=== PATIENT | male | born 1945 | race Caucasian/White ===

== ENCOUNTER 2017-10-11 22:43 | Inpatient (IN) | payer BC, MEDICARE ==
[2017-10-11 22:47] VITALS: BP 168/93; O2SAT 93; O2SAT 94
[2017-10-11 23:08] VITALS: O2SAT 100
[2017-10-11 23:16] LABS: BASOPHIL # 0.1 TH/MM3 (0-0.2); BASOPHIL % 0.8 % (0.0-2.0); EOSINOPHIL # 0.3 TH/MM3 (0-0.4); HEMATOCRIT 34.9 % (39.0-51.0); HEMOGLOBIN 11.5 GM/DL (13.0-17.0); LYMPH % 8.2 % (9.0-44.0); LYMPHOCYTE # 0.7 TH/MM3 (1.0-4.8); MEAN CELL VOLUME 91.9 FL (80.0-100.0); MEAN CORPUSCULAR HEMOGLOBIN 30.2 PG (27.0-34.0); MEAN CORPUSCULAR HGB CONC 32.9 % (32.0-36.0); MEAN PLATELET VOLUME 9.4 FL (7.0-11.0); MONO % 6.6 % (0.0-8.0); MONOCYTE # 0.6 TH/MM3 (0-0.9); NEUT % 81.4 % (16.0-70.0); PLATELET COUNT 186 TH/MM3 (150-450); RED CELL DISTRIBUTION WIDTH 15.6 % (11.6-17.2); WHITE BLOOD COUNT 8.7 TH/MM3 (4.0-11.0)
[2017-10-11] MEDS ORDERED: OMEP20TA93 PO (23:22)
[2017-10-11] MEDS ORDERED: DOXA1TAB35 PO (23:22)
[2017-10-11] MEDS ORDERED: ATOR80TA45 PO (23:22)
[2017-10-11] MEDS ORDERED: CALC0.25 PO (23:22)
[2017-10-11] MEDS ORDERED: ENAL20TA PO (23:22)
[2017-10-11] MEDS ORDERED: AMLO10 PO (23:22)
[2017-10-11] MEDS ORDERED: ALLO100T PO (23:22)
[2017-10-11 23:23] LABS: INTERNATIONAL NORMALIZED RATIO 1.2 RATIO; PROTHROMBIN TIME - PATIENT 11.7 SEC (9.8-11.6)
[2017-10-11] MEDS ORDERED: CARV3.125 PO (23:23)
[2017-10-11] MEDS ORDERED: SODI650T PO (23:23)
[2017-10-11] MEDS ORDERED: NITR0.4S SL (23:23)
[2017-10-11] MEDS ORDERED: VITA10002 PO (23:24)
[2017-10-11] MEDS ORDERED: ASPI-183 PO (23:24)
[2017-10-11 23:27] VITALS: O2SAT 100
[2017-10-11 23:38] LABS: BICARBONATE 19.5 MEQ/L (21.0-32.0); CALCIUM 6.9 MG/DL (8.5-10.1); CREATININE 3.63 MG/DL (0.60-1.30); MAGNESIUM 0.9 MG/DL (1.5-2.5); TROPONIN I 0.11 NG/ML (0.02-0.05)
--- NOTE | 2017-10-11 23:49 | RADRPT ---
EXAM DATE/TIME: 10/11/2017 23:13 [place] COMPARISON: No previous studies available for comparison. INDICATIONS : Short of breath. MEDICAL HISTORY : None. SURGICAL HISTORY : None. ENCOUNTER: Initial ACUITY: 1 day PAIN SCORE: 0/10 LOCATION: Bilateral chest FINDINGS: A single view of the chest demonstrates the lungs to be symmetrically aerated without evidence of mas s, infiltrate or effusion. The cardiomediastinal contours are unremarkable. Osseous structures are intact. CONCLUSION: The lungs are clear. A Edilberto Barragan MD on October 11, 2017 at 23:47 Board Certified Radiologist. This report was verified electronically.
[2017-10-11 23:52] LABS: TOTAL PROTEIN 6.8 GM/DL (6.4-8.2)
[2017-10-11 23:53] LABS: CALCIUM-PROTEIN CORRECTED 7.1 MG/DL (8.5-10.1)
[2017-10-12] VITALS (26 sets, daily range): BP systolic 132–155; BP diastolic 74–86; PULSE 72–94; RESP 16–22; TEMP 97.3–99; O2SAT 91–100
--- NOTE | 2017-10-12 00:10 | PD ---
HPI Chief Complaint: Respiratory Distress Time Seen by Provider: 22:48 Travel History International Travel<30 days: No Contact w/Intl Traveler<30days: No History of Present Illness HPI 72-year-old male was brought into the emergency room by EMS for respiratory distress. As per EMS the initial call to 911 went out as chest pain. Fire had responded first and gave patient 4 baby aspirins. However when EMS arrived patient denied of any chest pain or chest pressure. Only complaint is shortness of breath which was sudden onset at 8 PM. Patient does have history of coronary artery disease with stents. 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 Currently patient once again denies of any chest pain or chest discomfort. He started having lower extremity edema and as per EMS they had heard rales in the bilateral bases which made him start him on BiPAP as well as give him 80 mg of IV Lasix. Patient's initial oxygen saturation was 83% on room air. Patient does not require oxygen at home. The BiPAP oxygen improved to mid 90s. Upon arrival patient said that his breathing felt little better. Patient is not a smoker. No history of COPD. [facility]LY [facility] Past Medical History Narrative Medical List of his past medical, surgical, social and family history is reviewed from the nursing note. Cardiac Catheterization: Yes Diminished Hearing: No Gout: Yes Hypertension: Yes Renal Failure: Yes Triglycerides - High: Yes Social History Alcohol Use: No Tobacco Use: Yes Substance Use: No Allergies-Medications (Allergen,Severity, Reaction): Uncoded Allergies: pcn (Allergy, Severe, Anaphylaxis, 10/11/17) Comments List of his allergies reviewed from the nursing note. Reported Meds & Prescriptions Reported Meds & Active Scripts Active Reported Vitamin B-12 (Cyanocobalamin) 1,000 Mcg Tab 1,000 Mcg PO DAILY Aspirin 325 Mg Tab 325 Mg PO ONCE Sodium Bicarbonate 650 Mg Tab 650 Mg PO DAILY Nitrostat SL (Nitroglycerin) 0.4 Mg Subl 0.4 Mg SL DIRECTED PRN 1 tablet under the tongue as needed for chest pain. Repeat every 5 minutes for a total of 3 DOSES or call 911 if NO relief. Calcitriol 0.25 Mcg Cap 0.25 Mcg PO EVERY OTHER DAY Doxazosin (Doxazosin Mesylate) 2 Mg Tab 2 Mg PO DAILY Norvasc (Amlodipine Besylate) 10 Mg Tab 10 Mg PO DAILY Omeprazole 20 Mg Tab 20 Mg PO DAILY Atorvastatin (Atorvastatin Calcium) 80 Mg Tab 80 Mg PO HS Narrative Medication List of his home medications reviewed from the nursing note. Review of Systems Except as stated in HPI: all other systems reviewed are Neg Respiratory: Positive: Shortness of Breath Musculoskeletal: Positive: Edema Physical Exam Narrative GENERAL: Awake, alert, moderate distress, BiPAP SKIN: Focused skin assessment warm/dry. HEAD: Atraumatic. Normocephalic. EYES: Pupils equal and round. No scleral icterus. No injection or drainage. ENT: No nasal bleeding or discharge. Mucous membranes pink and moist. NECK: Trachea midline. No JVD. CARDIOVASCULAR: Regular rate and rhythm. No murmur appreciated. RESPIRATORY: Tachypnea with accessory muscles used for respiration. Decreased air entry bilaterally with end expiratory wheeze GASTROINTESTINAL: Abdomen soft, non-tender, nondistended. Hepatic and splenic margins not palpable. MUSCULOSKELETAL: No obvious deformities. No clubbing. No cyanosis. Bilateral pedal edema. NEUROLOGICAL: Awake and alert. No obvious cranial nerve deficits. Motor grossly within normal limits. Normal speech. PSYCHIATRIC: Appropriate mood and affect; insight and judgment normal. Data Data Last Documented VS Orders Orders Complete Blood Count With Diff (10/11/17 22:48) Basic Metabolic Panel (Bmp) (10/11/17 22:48) B-Type Natriuretic Peptide (10/11/17 22:48) Prothrombin Time / Inr (Pt) (10/11/17 22:48) Magnesium (Mg) (10/11/17 22:48) Troponin I (10/11/17 22:48) Arterial Blood Gas (Abg) (10/11/17 22:48) Urinalysis - C+S If Indicated (10/11/17 22:48) Iv Access Insert/Monitor (10/11/17 22:48) Electrocardiogram (10/11/17 22:48) Ecg Monitoring (10/11/17 22:48) Oximetry (10/11/17 22:48) Oxygen Administration (10/11/17 22:48) Chest, Single Ap (10/11/17 22:48) Resp Bipap / Cpap Non Invas Vt (10/11/17 ) Protein Corrected Calcium(Pcc) (10/11/17 22:55) Heparin Inj (Heparin Inj) (10/12/17 00:15) Heparin Inj (Heparin Inj) (10/12/17 06:15) Heparin Inj (Heparin Inj) (10/12/17 06:15) Heparin-D5w 25,000 U/250 Ml (Heparin-D5w (10/12/17 00:15) Act Partial Throm Time (Ptt) (10/12/17 00:02) Cbc No Diff, Includes Plts (10/12/17 00:02) Calcium Gluconate Inj (Calcium Gluconate (10/12/17 00:15) Admit Order (Ed Use Only) (10/12/17 00:22) Labs Laboratory Tests Test 10/11/17 22:52 10/11/17 22:55 10/12/17 00:01 Blood Gas Puncture Site LT RADIAL Blood Gas Patient Temperature 98.6 Blood Gas HCO3 19 mmol/L Blood Gas Base Excess -5.9 mmol/L Blood Gas Oxygen Saturation 88 % Arterial Blood pH 7.35 Arterial Blood Partial Pressure CO2 34 mmHg Arterial Blood Partial Pressure O2 64 mmHG Arterial Blood Oxygen Content 13.1 Vol % Arterial Blood Carboxyhemoglobin 1.9 % Arterial Blood Methemoglobin 0.7 % Blood Gas Hemoglobin 10.6 G/DL Oxygen Delivery Device BiPAP Blood Gas Ventilator Setting 14IPAP/7EPAP Blood Gas Inspired Oxygen 50 % White Blood Count 8.7 TH/MM3 Red Blood Count 3.80 MIL/MM3 Hemoglobin 11.5 GM/DL Hematocrit 34.9 % Mean Corpuscular Volume 91.9 FL Mean Corpuscular Hemoglobin 30.2 PG Mean Corpuscular Hemoglobin Concent 32.9 % Red Cell Distribution Width 15.6 % Platelet Count 186 TH/MM3 Mean Platelet Volume 9.4 FL Neutrophils (%) (Auto) 81.4 % Lymphocytes (%) (Auto) 8.2 % Monocytes (%) (Auto) 6.6 % Eosinophils (%) (Auto) 3.0 % Basophils (%) (Auto) 0.8 % Neutrophils # (Auto) 7.0 TH/MM3 Lymphocytes # (Auto) 0.7 TH/MM3 Monocytes # (Auto) 0.6 TH/MM3 Eosinophils # (Auto) 0.3 TH/MM3 Basophils # (Auto) 0.1 TH/MM3 CBC Comment DIFF FINAL Differential Comment Prothrombin Time 11.7 SEC Prothromb Time International Ratio 1.2 RATIO Blood Urea Nitrogen 38 MG/DL Creatinine 3.63 MG/DL Random Glucose 141 MG/DL Total Protein 6.8 GM/DL Calcium Level 6.9 MG/DL Magnesium Level 0.9 MG/DL Sodium Level 145 MEQ/L Potassium Level 4.1 MEQ/L Chloride Level 111 MEQ/L Carbon Dioxide Level 19.5 MEQ/L Anion Gap 15 MEQ/L Estimat Glomerular Filtration Rate 17 ML/MIN Protein Corrected Calcium 7.1 MG/DL Troponin I 0.11 NG/ML B-Type Natriuretic Peptide 752 PG/ML Activated Partial Thromboplast Time 27.5 SEC [facility] Medical Decision Making Medical Screen Exam Complete: Yes Emergency Medical Condition: Yes Medical Record Reviewed: Yes Interpretation(s) Twelve-lead EKG was reviewed by me. Normal sinus rhythm, normal axis, old anterior septal ID, poor R-wave progression, nonspecific ST-T wave changes. Heart rate of 94 bpm. Differential Diagnosis Non-STEMI,/pulmonary edema, congestive heart failure Narrative Course 12:09 AM chest x-ray has been read by the radiologist as negative. Patient was continued on the BiPAP. Blood test result is suggestive of elevated troponin and BNP. I've started the patient on heparin bolus and drip for non-STEMI. Patient will require admission to CICU. Awaiting for the hospitalist to call back. Critical Care Narrative Aggregate critical care time was 45 minutes. Time to perform other separately billable procedures was not included in the critical care time. My time did not include minutes spent treating any other patients simultaneously or on activities that did not directly contribute to the patient's treatment. The services I provided to this patient were to treat and/or prevent clinically significant deterioration that could result in: Respiratory distress, elevated troponin, non-STEMI I provided critical care services requiring my management, as noted below: Chart data review, documentation time, medication orders and management, vital sign assessments/reviewing monitor data, ordering and reviewing lab tests, ordering and interpreting/reviewing x-rays and diagnostic studies, care of the patient and discussion of the patient with the admitting physicians. Procedures EKG Prior to Arrival: Yes Diagnosis Primary Impression: Respiratory distress Additional Impressions: Non-STEMI (non-ST elevated myocardial infarction) Congestive heart disease Qualified Codes: I50.9 - Heart failure, unspecified Chronic renal insufficiency Qualified Codes: N18.9 - Chronic kidney disease, unspecified Hypocalcemia Admitting Information Admitting Physician Requests: Admit Scripts Hydralazine HCl (Hydralazine HCl) 10 Mg Tablet 10 MG PO Q8HR for Blood Pressure Management, #90 TAB Prov: James Jacques DO 10/13/17 Torsemide (Torsemide) 10 Mg Tab 10 MG PO BID for Heart, #60 TAB 0 Refills Prov: James Jacques DO 10/13/17 Carvedilol (Carvedilol) 6.25 Mg Tab 6.25 MG PO BID, #60 TAB 0 Refills Prov: James Jacques DO 10/13/17 Amanda Reynoso MD Oct 12, 2017 00:10
[2017-10-12] MEDS ORDERED: HEPARIN-D5W 25,000 U/250 ML 250 ML IV PRN (00:15)
[2017-10-12] MEDS ORDERED: CALCIUM GLUCONATE 10% 1 GM/10 ML VIAL IV PUSH ONE (00:15)
[2017-10-12] MEDS ORDERED: HEPARIN SODIUM - IV 10,000 UNITS/10 ML VIAL IV ONE (00:15)
[2017-10-12] MEDS ORDERED: NALOXONE HCL 0.4 MG/ML AMP IV PUSH PRN (01:00)
[2017-10-12] MEDS ORDERED: ONDANSETRON HCL 4 MG/2 ML VIAL IVP PRN (01:00)
[2017-10-12] MEDS ORDERED: ASPIRIN 325 MG TAB PO SCH (01:30)
[2017-10-12] MEDS ORDERED: MAGNESIUM SULFATE 1 GM PREMIX 100 ML IV ONE (01:45)
--- NOTE | 2017-10-12 01:51 | HHI.HP ---
HPI Service [facility] Primary Care Physician Non-Staff Admission Diagnosis non-STEMI, respiratory distress, CHF Diagnoses: Travel History International Travel<30 Days: No Contact w/Intl Traveler <30 Da: No History of Present Illness 72-year-old male with a past medical history significant for coronary artery disease status post stenting, hypertension, hyperlipidemia and chronic kidney disease presents to the emergency department by EMS for evaluation of shortness sudden onset shortness of breath. Patient states that he had shortness of breath with sudden onset at 8 PM last night. He states he is having difficulty breathing however this is helped with his BiPAP. He denies any chest pain/ pressure. Per EMS report and emergency room documentation the 911 call was placed for evaluation of chest pain. During our interview, the patient denies ever having had any chest pain at all during the past several days. He endorses a 4-5 day history of bilateral lower extremity edema that is new. He denies any fever/chills. Denies cough. Denies nausea/vomiting/diarrhea. Denies any weakness or fatigue. Review of Systems Except as stated in HPI: all other systems reviewed are Neg Past Family Social History Past Medical History CAD HTN HLD CKD Past Surgical History Cardiac catheterizations with stent placement 10 per patient Left lower extremity bypass Reported Medications Reported Meds & Active Scripts Active Reported Vitamin B-12 (Cyanocobalamin) 1,000 Mcg Tab 1,000 Mcg PO DAILY Aspirin 325 Mg Tab 325 Mg PO ONCE Sodium Bicarbonate 650 Mg Tab 650 Mg PO DAILY Nitrostat SL (Nitroglycerin) 0.4 Mg Subl 0.4 Mg SL DIRECTED PRN 1 tablet under the tongue as needed for chest pain. Repeat every 5 minutes for a total of 3 DOSES or call 911 if NO relief. Coreg (Carvedilol) 3.125 Mg Tab 3.125 Mg PO BID Calcitriol 0.25 Mcg Cap 0.25 Mcg PO EVERY OTHER DAY Allopurinol 100 Mg Tab 200 Mg PO DAILY Doxazosin (Doxazosin Mesylate) 2 Mg Tab 2 Mg PO DAILY Norvasc (Amlodipine Besylate) 10 Mg Tab 10 Mg PO DAILY Omeprazole 20 Mg Tab 20 Mg PO DAILY Atorvastatin (Atorvastatin Calcium) 80 Mg Tab 80 Mg PO HS Enalapril (Enalapril Maleate) 20 Mg Tab 20 Mg PO DAILY Allergies: Uncoded Allergies: pcn (Allergy, Severe, Anaphylaxis, 10/11/17) Family History Both parents with CAD and DM Social History Denies alcohol, tobacco and illicit drugs Physical Exam Vital Signs Vital Signs Date Time Temp Pulse Resp B/P (MAP) Pulse Ox O2 Delivery O2 Flow Rate FiO2 10/12/17 00:44 100 80 10/11/17 23:27 100 BiPAP 10/11/17 23:08 100 50 10/11/17 22:56 94 BiPAP 10/11/17 22:47 94 27 168/93 (118) 94 10/11/17 22:47 93 50 Physical Exam GENERAL: male sitting up in bed SKIN: No rashes, ecchymoses or lesions. Cool and dry. HEAD: Atraumatic. Normocephalic. No temporal or scalp tenderness. EYES: Pupils equal round and reactive. Extraocular motions intact. No scleral icterus. No injection or drainage. ENT: Nose without bleeding, purulent drainage or septal hematoma. Throat without erythema, tonsillar hypertrophy or exudate. Uvula midline. Airway patent. NECK: Trachea midline. No JVD or lymphadenopathy. Supple, nontender, no meningeal signs. CARDIOVASCULAR: Regular rate and rhythm without murmurs, gallops, or rubs. RESPIRATORY: Clear to auscultation. Breath sounds equal bilaterally. No wheezes , rales, or rhonchi. GASTROINTESTINAL: Abdomen soft, non-tender, nondistended. No hepato-splenomegaly , or palpable masses. No guarding. MUSCULOSKELETAL: Bilateral 2+ edema in the feet and ankles NEUROLOGICAL: Awake and alert. Cranial nerves II through XII intact. Motor and sensory grossly within normal limits. Normal speech. Laboratory Laboratory Tests Test 10/11/17 22:52 10/11/17 22:55 10/12/17 00:01 Blood Gas Puncture Site LT RADIAL Blood Gas Patient Temperature 98.6 Blood Gas HCO3 19 Blood Gas Base Excess -5.9 Blood Gas Oxygen Saturation 88 Arterial Blood pH 7.35 Arterial Blood Partial Pressure CO2 34 Arterial Blood Partial Pressure O2 64 Arterial Blood Oxygen Content 13.1 Arterial Blood Carboxyhemoglobin 1.9 Arterial Blood Methemoglobin 0.7 Blood Gas Hemoglobin 10.6 Oxygen Delivery Device BiPAP Blood Gas Ventilator Setting 14IPAP/7EPAP Blood Gas Inspired Oxygen 50 White Blood Count 8.7 Red Blood Count 3.80 Hemoglobin 11.5 Hematocrit 34.9 Mean Corpuscular Volume 91.9 Mean Corpuscular Hemoglobin 30.2 Mean Corpuscular Hemoglobin Concent 32.9 Red Cell Distribution Width 15.6 Platelet Count 186 Mean Platelet Volume 9.4 Neutrophils (%) (Auto) 81.4 Lymphocytes (%) (Auto) 8.2 Monocytes (%) (Auto) 6.6 Eosinophils (%) (Auto) 3.0 Basophils (%) (Auto) 0.8 Neutrophils # (Auto) 7.0 Lymphocytes # (Auto) 0.7 Monocytes # (Auto) 0.6 Eosinophils # (Auto) 0.3 Basophils # (Auto) 0.1 CBC Comment DIFF FINAL Differential Comment Prothrombin Time 11.7 Prothromb Time International Ratio 1.2 Blood Urea Nitrogen 38 Creatinine 3.63 Random Glucose 141 Total Protein 6.8 Calcium Level 6.9 Magnesium Level 0.9 Sodium Level 145 Potassium Level 4.1 Chloride Level 111 Carbon Dioxide Level 19.5 Anion Gap 15 Estimat Glomerular Filtration Rate 17 Protein Corrected Calcium 7.1 Troponin I 0.11 B-Type Natriuretic Peptide 752 Activated Partial Thromboplast Time 27.5 Result Diagram: 10/11/17225410/11/172254 Caprini VTE Risk Assessment Caprini VTE Risk Assessment: Mod/High Risk (score >= 2) Caprini Risk Assessment Model Point Value = 1 Point Value = 2 Point Value = 3 Point Value = 5 Age 41-60 Minor surgery BMI > 25 kg/m2 Swollen legs Varicose veins or History of unexplained or recurrent spontaneous Oral contraceptives or hormone replacement Sepsis (< 1 month) Serious lung disease, including pneumonia (< 1 month) Abnormal pulmonary function Acute myocardial infarction Congestive heart failure (< 1 month) History of inflammatory bowel disease Medical patient at bed rest Age 61-74 Arthroscopic surgery Major open surgery (> 45 min) Laparoscopic surgery (> 45 min) Malignancy Confined to bed (> 72 hours) Immobilizing plaster cast Central venous access Age >= 75 History of VTE Family history of VTE Factor V Leiden Prothrombin [id number] Lupus anticoagulant Anticardiolipin antibodies Elevated serum homocysteine Heparin-induced thrombocytopenia Other congenital or acquired thrombophilia Stroke (< 1 month) Elective arthroplasty Hip, pelvis, or leg fracture Acute spinal cord injury (< 1 month) Prophylaxis Regimen Total Risk Factor Score Risk Level Prophylaxis Regimen 0-1 Low Early ambulation 2 Moderate Order ONE of the following: *Sequential Compression Device (SCD) *Heparin 5000 units SQ BID 3-4 Higher Order ONE of the following medications: *Heparin 5000 units SQ TID *Enoxaparin/Lovenox 40 mg SQ daily (WT < 150 kg, CrCl > 30 mL/min) *Enoxaparin/Lovenox 30 mg SQ daily (WT < 150 kg, CrCl > 10-29 mL/min) *Enoxaparin/Lovenox 30 mg SQ BID (WT < 150 kg, CrCl > 30 mL/min) AND/OR *Sequential Compression Device (SCD) 5 or more Highest Order ONE of the following medications: *Heparin 5000 units SQ TID (Preferred with Epidurals) *Enoxaparin/Lovenox 40 mg SQ daily (WT < 150 kg, CrCl > 30 mL/min) *Enoxaparin/Lovenox 30 mg SQ daily (WT < 150 kg, CrCl > 10-29 mL/min) *Enoxaparin/Lovenox 30 mg SQ BID (WT < 150 kg, CrCl > 30 mL/min) AND *Sequential Compression Device (SCD) Assessment and Plan Assessment and Plan Assessment/plan: 1. Shortness of breath Unclear etiology Chest x-ray negative for acute cardiopulmonary findings, personally reviewed May be component of CHF as patient with mildly elevated BNP and lower extremity edema IV Lasix Continue BiPAP, wean as tolerated 2. Elevated troponin Patient with troponin of 0.11 EKG showed normal sinus rhythm without ST segment elevations or depressions, personally reviewed Patient's elevated troponin is likely secondary to his renal insufficiency Patient denied having any chest pain however this was reported to the emergency department physician Patient was started on a heparin drip in the emergency department, we will continue this until ACS rule out as complete Patient's senior writer, Dr. Meredith, consulted, appreciate recommendations 3. Chronic kidney disease Creatinine 3.63, baseline unknown Patient has known history of chronic kidney disease Monitor renal function 4. Hypertension/hyperlipidemia/CAD Continue home medications 5. Hypocalcemia, hypomagnesemia Status post supplementation Repeat in a.m. FEN NPO Electrolytes: as above Heparin ggt Physician Certification 2 Midnight Certification Type: Admission for Inpatient Services Order for Inpatient Services The services are ordered in accordance with Medicare regulations or non- Medicare payer requirements, as applicable. In the case of services not specified as inpatient-only, they are appropriately provided as inpatient services in accordance with the 2-midnight benchmark. Estimated LOS (days): 2 2 days is the estimated time the patient will need to remain in the hospital, assuming treatment plan goals are met and no additional complications. Post-Hospital Plan: Not yet determined Agnes Kimble MD Oct 12, 2017 01:51
[2017-10-12 02:43] LABS: HEMATOCRIT 31.4 % (39.0-51.0); HEMOGLOBIN 10.3 GM/DL (13.0-17.0); MEAN CELL VOLUME 92.2 FL (80.0-100.0); MEAN CORPUSCULAR HEMOGLOBIN 30.2 PG (27.0-34.0); MEAN CORPUSCULAR HGB CONC 32.7 % (32.0-36.0); MEAN PLATELET VOLUME 9.5 FL (7.0-11.0); PLATELET COUNT 168 TH/MM3 (150-450); RED CELL DISTRIBUTION WIDTH 15.3 % (11.6-17.2); WHITE BLOOD COUNT 6.4 TH/MM3 (4.0-11.0)
[2017-10-12 02:48] LABS: BILIRUBIN, URINE NEG (NEG); BLOOD, URINE NEG (NEG); GLUCOSE,URINE NEG (NEG); HYALINE CAST, URINE 3 /lpf (RARE); KETONE, URINE NEG (NEG); MUCUS URINE FEW /lpf (OCC); NITRITE,URINE NEG (NEG); PH, URINE 5.5 (5.0-8.5); URINE COLOR LIGHT-YELLOW (YELLW/STRAW); URINE LEUKOCYTE ESTERASE NEG (NEG)
[2017-10-12] MEDS ORDERED: HEPARIN SODIUM - IV 10,000 UNITS/10 ML VIAL IV PRN ×2 (06:15)
--- NOTE | 2017-10-12 08:52 | MB ---
cc: Cinthya Meredith MD DATE OF CONSULT: 10/12/2017 REASON FOR CONSULTATION: CHF and elevated troponin. HISTORY OF PRESENT ILLNESS: Mr. Zaragoza is a 72-year-old man who does have a history of CAD with prior stent, hypertension, hyperlipidemia, and chronic kidney disease, who follows with myself and Dr. Gilbert. He presented to the emergency room with progressive shortness of breath. He notes he had shortness of breath while sitting on the side of the bed. He has had several days of progressive lower extremity edema. He reports he has been following his medications and diet restrictions. PAST MEDICAL HISTORY: Significant for hypertension, hyperlipidemia, CAD, CKD and PVD. OUTPATIENT MEDICATIONS: Include: aspirin, Coreg, calcitriol, Allopurinol, doxazosin, Norvasc, omeprazole, atorvastatin, enalapril. ALLERGIES: PENICILLIN. FAMILY HISTORY: Positive for CAD. SOCIAL HISTORY: The patient does not smoke. PHYSICAL EXAM: VITAL SIGNS: 98.3, 86, 19, 155/80 GENERAL: He is a well-appearing man, who is in no apparent distress. NECK: Free from JVD. LUNGS: Bilateral basilar rales. CARDIOVASCULAR EXAMINATION: He has a normal S1 and S2. No rubs or gallops were appreciated. ABDOMEN: Soft. EXTREMITIES: Mild edema. LABORATORY VALUES: Significant for a hemoglobin of 10. His creatinine is 3.6 and troponin is 0.11 with a BNP of 752. Chest x-ray, clear. ECG shows normal sinus rhythm with poor R-wave progression and nonspecific ST-T wave changes. IMPRESSIONS: Congestive heart failure - The patient has renal insufficiency and apparent fluid overload. I do agree with the IV Lasix. Fluid and sodium restrictions will be added. He is already on a beta bhupendra and DAYSI inhibitor. Chronic kidney disease - The patient has had significant progression of his renal insufficiency. At this point, given his renal insufficiency, I would hold his DAYSI inhibitor, consideration should be given to a nephrology consult per the primary team. Elevated troponin - The patient is on heparin and a beta bhupendra. He denies any chest pain to me. His elevated creatinine of 3.6 is rather prohibitive for catheterization as he is not yet on dialysis. Thus, at this point, I would conservatively manage him. I do feel that the troponin of 0.11 is consistent with CHF at this point, especially in light of his BNP of 752, also suggesting CHF. Further enzymes are pending. MD CHINA Quintana/AIME , 08:17 AM , 08:50 AM
[2017-10-12] MEDS ORDERED: ENALAPRIL MALEATE 10 MG TAB PO SCH (09:00)
[2017-10-12] MEDS ORDERED: CALCITRIOL 0.25 MCG CAP PO SCH (09:00)
[2017-10-12] MEDS ORDERED: SODIUM BICARBONATE 650 MG TAB PO SCH (09:00)
[2017-10-12] MEDS ORDERED: FUROSEMIDE 40 MG/4 ML VIAL IV PUSH SCH (09:00)
[2017-10-12] MEDS: ALLOPURINOL 100 MG TAB PO SCH (09:08)
[2017-10-12] MEDS: PANTOPRAZOLE SOD 20 MG DELAYED RELEASE TAB PO SCH (09:08)
[2017-10-12] MEDS: CARVEDILOL 3.125 MG TAB PO SCH ×2 (09:08→21:41)
[2017-10-12] MEDS: CYANOCOBALAMIN 1,000 MCG TAB PO SCH (09:08)
[2017-10-12 09:11] LABS: TROPONIN I 0.16 NG/ML (0.02-0.05)
[2017-10-12] MEDS: DOXAZOSIN MESYLATE 2 MG TAB PO SCH (09:37)
[2017-10-12] MEDS: hydrALAZINE HCL 10 MG TAB PO SCH ×2 (11:25→17:51)
--- NOTE | 2017-10-12 11:26 | EKG ---
Date Performed: 10/11/2017 Time Performed: 22:52:17 PTAGE: 72 years EKG: Sinus rhythm LOW QRS VOLTAGE IN EXTREMITY LEADS POSSIBLE ANTERIOR MYOCARDIAL INFARCTION ABNORMAL ECG NO PREVIOUS TRACING DOCTOR: Cinthya Meredith Interpretating Date/Time 10/12/2017 11:24:19
--- NOTE | 2017-10-12 14:59 | HHI.PR ---
Addendum to Inpatient Note Additional Information Mr. Zaragoza is a 72-year-old male with a history of chronic kidney disease who was admitted due to dyspnea. He also had mildly elevated troponins. Cardiology was consulted for possible CHF exacerbation. Patient received IV Lasix. He reports significant improvement of his symptoms. He denies any chest pain at home or here. I discussed with nephrology. Patient's baseline creatinine appears to be below 3 but during this admission his creatinine is 3.6. His dyspnea could be related to fluid overload from acute kidney injury on chronic kidney disease. Nephrology will evaluate him today. Probable discharge tomorrow morning. James Jacques DO Oct 12, 2017 2:59 pm
[2017-10-12 16:14] LABS: TROPONIN I 0.12 NG/ML (0.02-0.05)
--- NOTE | 2017-10-12 16:41 | PD.CONS ---
HPI Service Nephrology Consult Requested By Reason for Consult Acute on CKD Primary Care Physician Non-Staff History of Present Illness This is a very pleasant 72 y/o male patient with underlying CKD 4 who came to the ER for shortness of breath and swelling of his lower extremities. He has been short of breath for a few days. Creatinine on arrival was 3.6, CO2 19. BNP and troponin were elevated. He was evaluated by cardiology and started on Heparin gtt. He is making urine. We were consulted to assist. Other PMH of Barretts esophagus, gout, anemia, CAD (hx of stents), and HTN. He is not on diuretics at home, was on lasix 40 IV BID here. He is awake, not in distress, and is a full code. (Mesha Rizvi) Review of Systems Constitutional: COMPLAINS OF: Fatigue, Weight gain, DENIES: Change in appetite Respiratory: COMPLAINS OF: Shortness of breath Cardiovascular: COMPLAINS OF: Lower Extremity Edema, DENIES: Chest pain Gastrointestinal: DENIES: Abdominal pain Musculoskeletal: DENIES: Joint pain, Joint Swelling Hematologic/lymphatic: DENIES: Bruising Neurologic: DENIES: Abnormal gait (Mesha Rizvi) Past Family Social History Allergies: Uncoded Allergies: pcn (Allergy, Severe, Anaphylaxis, 10/11/17) Past Medical History CKD 4, Baseline 2.68/GFR 23 Biopsy proven FSGS with Proteinuria CAD with stents HTN Hyperlipidemia Williamson's Esophagus GOUT Past Surgical History Cardiac catheterizations with stent placement 10 per patient Left lower extremity bypass Reported Medications Vitamin B-12 (Cyanocobalamin) 1,000 Mcg Tab 1,000 Mcg PO DAILY Aspirin 325 Mg Tab 325 Mg PO ONCE Sodium Bicarbonate 650 Mg Tab 650 Mg PO DAILY Nitrostat SL (Nitroglycerin) 0.4 Mg Subl 0.4 Mg SL DIRECTED PRN 1 tablet under the tongue as needed for chest pain. Repeat every 5 minutes for a total of 3 DOSES or call 911 if NO relief. Coreg (Carvedilol) 3.125 Mg Tab 3.125 Mg PO BID Calcitriol 0.25 Mcg Cap 0.25 Mcg PO EVERY OTHER DAY Allopurinol 100 Mg Tab 200 Mg PO DAILY Doxazosin (Doxazosin Mesylate) 2 Mg Tab 2 Mg PO DAILY Norvasc (Amlodipine Besylate) 10 Mg Tab 10 Mg PO DAILY Omeprazole 20 Mg Tab 20 Mg PO DAILY Atorvastatin (Atorvastatin Calcium) 80 Mg Tab 80 Mg PO HS Enalapril (Enalapril Maleate) 20 Mg Tab 20 Mg PO DAILY Active Ordered Medications Current Medications Medications (Trade) Dose Ordered Sig/Lamar Route Start Time Stop Time Status Last Admin (Heparin Inj) 5,000 units UNSCH PRN IV 10/12/17 06:15 (Heparin Inj) 2,500 units UNSCH PRN IV 10/12/17 06:15 10/12/17 01:18 Heparin Sodium/ Dextrose 250 ml @ 9 mls/hr TITRATE PRN IV 10/12/17 00:15 10/12/17 02:27 (Zofran Inj) 4 mg Q6H PRN IVP 10/12/17 01:00 (Narcan Inj) 0.4 mg UNSCH PRN IV PUSH 10/12/17 01:00 (Zyloprim) 200 mg DAILY PO 10/12/17 09:00 10/12/17 09:08 (Norvasc) 10 mg DAILY PO 10/12/17 09:00 10/12/17 09:08 (Lipitor) 80 mg HS PO 10/12/17 21:00 (Coreg) 3.125 mg BID PO 10/12/17 09:00 10/12/17 09:08 (Cardura) 2 mg DAILY PO 10/12/17 09:00 10/12/17 09:37 (Sodium Bicarbonate) 650 mg DAILY PO 10/12/17 09:00 10/12/17 09:36 (Protonix) 20 mg DAILY PO 10/12/17 09:00 10/12/17 09:08 (Rocaltrol) 0.25 mcg EVERY OTHER DAY PO 10/12/17 09:00 10/12/17 09:36 (Vitamin B12) 1,000 mcg DAILY PO 10/12/17 09:00 10/12/17 09:08 (Lasix Inj) 40 mg BID@18 IV PUSH 10/12/17 09:00 10/12/17 09:08 (Apresoline) 10 mg Q6HR PO 10/12/17 12:00 10/12/17 11:25 Family History Non contributory Social History recently passed, within the past month Lives alone now He is active Full Code 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) Physical Exam Vital Signs Vital Signs Date Time Temp Pulse Resp B/P (MAP) Pulse Ox O2 Delivery O2 Flow Rate FiO2 10/12/17 16:00 82 10/12/17 15:31 98.3 81 19 132/74 (93) 92 10/12/17 15:00 77 10/12/17 14:02 81 10/12/17 13:00 80 10/12/17 12:00 82 10/12/17 11:13 97.3 80 19 145/79 (101) 93 10/12/17 11:00 87 10/12/17 10:00 94 10/12/17 09:00 86 10/12/17 08:10 91 Nasal Cannula 3.00 10/12/17 08:00 82 10/12/17 07:44 98.3 86 19 155/80 (105) 93 10/12/17 07:00 85 10/12/17 04:14 98 Venturi Mask 6.00 40 10/12/17 04:00 99 6.00 50 10/12/17 04:00 98.2 91 22 148/86 (106) 98 10/12/17 03:52 10/12/17 02:44 97 60 10/12/17 01:49 78 16 142/77 (98) 92 BiPAP 10/12/17 00:44 100 80 10/11/17 23:27 100 BiPAP 10/11/17 23:08 100 100 10/11/17 22:56 94 BiPAP 10/11/17 22:47 94 27 168/93 (118) 94 10/11/17 22:47 93 50 Physical Exam GENERAL: male resting in bed. SKIN: No rashes, ecchymoses or lesions. Cool and dry. HEAD: Atraumatic. Normocephalic. No temporal or scalp tenderness. EYES: Pupils equal round and reactive. Extraocular motions intact. No scleral icterus. No injection or drainage. ENT: Nose without bleeding, purulent drainage or septal hematoma. Throat without erythema, tonsillar hypertrophy or exudate. Uvula midline. Airway patent. NECK: Trachea midline. No JVD or lymphadenopathy. Supple, nontender, no meningeal signs. CARDIOVASCULAR: Regular rate and rhythm without murmurs, gallops, or rubs. RESPIRATORY: Clear to auscultation. Breath sounds equal bilaterally. No wheezes , rales, or rhonchi. Speaks full sentences. GASTROINTESTINAL: Abdomen soft, non-tender, nondistended. No hepato-splenomegaly , or palpable masses. No guarding. MUSCULOSKELETAL: Trace edema in the feet and ankles NEUROLOGICAL: Awake and alert. CN II through XII intact. Motor and sensory grossly within normal limits. Normal speech. Laboratory Laboratory Tests Test 10/11/17 22:52 10/11/17 22:55 10/12/17 00:01 10/12/17 02:30 Blood Gas Puncture Site LT RADIAL Blood Gas Patient Temperature 98.6 Blood Gas HCO3 19 Blood Gas Base Excess -5.9 Blood Gas Oxygen Saturation 88 Arterial Blood pH 7.35 Arterial Blood Partial Pressure CO2 34 Arterial Blood Partial Pressure O2 64 Arterial Blood Oxygen Content 13.1 Arterial Blood Carboxyhemoglobin 1.9 Arterial Blood Methemoglobin 0.7 Blood Gas Hemoglobin 10.6 Oxygen Delivery Device BiPAP Blood Gas Ventilator Setting 14IPAP/7EPAP Blood Gas Inspired Oxygen 50 White Blood Count 8.7 6.4 Red Blood Count 3.80 3.40 Hemoglobin 11.5 10.3 Hematocrit 34.9 31.4 Mean Corpuscular Volume 91.9 92.2 Mean Corpuscular Hemoglobin 30.2 30.2 Mean Corpuscular Hemoglobin Concent 32.9 32.7 Red Cell Distribution Width 15.6 15.3 Platelet Count 186 168 Mean Platelet Volume 9.4 9.5 Neutrophils (%) (Auto) 81.4 Lymphocytes (%) (Auto) 8.2 Monocytes (%) (Auto) 6.6 Eosinophils (%) (Auto) 3.0 Basophils (%) (Auto) 0.8 Neutrophils # (Auto) 7.0 Lymphocytes # (Auto) 0.7 Monocytes # (Auto) 0.6 Eosinophils # (Auto) 0.3 Basophils # (Auto) 0.1 CBC Comment DIFF FINAL Differential Comment Prothrombin Time 11.7 Prothromb Time International Ratio 1.2 Blood Urea Nitrogen 38 Creatinine 3.63 Random Glucose 141 Total Protein 6.8 Calcium Level 6.9 Magnesium Level 0.9 Sodium Level 145 Potassium Level 4.1 Chloride Level 111 Carbon Dioxide Level 19.5 Anion Gap 15 Estimat Glomerular Filtration Rate 17 Protein Corrected Calcium 7.1 Troponin I 0.11 B-Type Natriuretic Peptide 752 Activated Partial Thromboplast Time 27.5 Urine Color LIGHT-YELLOW Urine Turbidity CLEAR Urine pH 5.5 Urine Specific Ward 1.009 Urine Protein 100 Urine Glucose (UA) NEG Urine Ketones NEG Urine Occult Blood NEG Urine Nitrite NEG Urine Bilirubin NEG Urine Urobilinogen LESS THAN 2.0 Urine Leukocyte Esterase NEG Urine RBC 1 Urine WBC LESS THAN 1 Urine Hyaline Casts 3 Urine Mucus FEW Microscopic Urinalysis Comment CULT NOT INDICATED Test 10/12/17 05:16 10/12/17 14:44 Total Creatine Kinase 174 156 Troponin I 0.16 0.12 Activated Partial Thromboplast Time 41.1 (Mesha Rizvi) Result Diagram: 10/12/17 0230 10/11/17 2255 Imaging Last 72 hours Impressions Chest X-Ray 10/11/17 2248 Signed Impressions: Service Date/Time: Wednesday, October 11, 2017 23:13 - CONCLUSION: The lungs are clear. A Edilberto Barragan MD (Mesha Rizvi) Assessment and Plan Problem List: (1) Acute renal failure superimposed on stage 4 chronic kidney disease ICD Codes: N17.9 - Acute kidney failure, unspecified; N18.4 - Chronic kidney disease, stage 4 (severe) Plan: He has biopsy proven FSGS, his creatinine was 2.68, GFR 23 from May 2017 BHAVESH most likely due to increased renal vein pressure from CHF exacerbation, fluid retention. He is non oliguric,follow output Mild acidosis noted, increase sodium bicarbonate to BID dosage for discharge Obtain renal US Change lasix to 40 mg PO BID Avoid nephrotoxic agents. Cannot stop Protonix given hx of Williamson's esophagus. Renal panel in AM He should resume DAYSI but would advise to wait several days prior to starting. (2) Non-STEMI (non-ST elevated myocardial infarction) ICD Codes: I21.4 - Non-ST elevation (NSTEMI) myocardial infarction Status: Acute Plan: He is on heparin gtt currently Cardiology has evaluated, recommend conservative management given his renal impairment (Mesha Rizvi) Assessment and Plan patient was seen and examined. Acute on Chronic kidney disease, patient with fluid overload. Unclear if fluid overload is due to renal dysfunction, but certainly possible. Echo was obtained. Does have history of CAD, s/p stents. Plan: Change Lasix to PO. Avoid nephrotoxins. Monitor urine output and renal function. Dialysis if necessary. (Rupert Gilbert MD) Mesha Rizvi Oct 12, 2017 16:41 Rupert Gilbert MD Oct 12, 2017 20:11
[2017-10-12] MEDS: FUROSEMIDE 40 MG TAB PO SCH (17:51)
--- NOTE | 2017-10-12 19:05 | RADRPT ---
EXAM DATE/TIME: 10/12/2017 17:30 [facility] COMPARISON: No previous studies available for comparison. INDICATIONS : Elevated labs. MEDICAL HISTORY : Hypertension. Hyperlipidemia. Dyspnea. Renal Failure. Gout. SURGICAL HISTORY : Cardiac catheterization. ENCOUNTER: Initial ACUITY: 1 day PAIN SCORE: 0/10 LOCATION: Bilateral flank MEASUREMENTS: RIGHT KIDNEY: 9.5 x 4.6 x 4.6 cm LEFT KIDNEY: 11.6 x 4.2 x 5.3 cm FINDINGS: Right kidney is slightly echogenic. No hydronephrosis. Left kidney has moderate hydronephrosis and a 1.3 cm cyst in the lower pole. Bladder is distended. CONCLUSION: 1. Moderate hydronephrosis left kidney of unknown etiology. Mild medical renal disease and the right kidney. Carlos Napoles MD on October 12, 2017 at 19:02 Board Certified Radiologist. This report was verified electronically.
--- NOTE | 2017-10-12 19:42 | ECHRPT ---
Indication: CHF CONCLUSIONS The left ventricular systolic function is moderately to severely reduced with an estimated ejection fraction in the range of 30-35%. Normal left ventricular size. Wall thickness is normal. No regional wall motion abnormalities are present. [id number] mitral valve regurgitation. Aortic valve sclerosis is present. Trace aortic valve regurgitation. There is trace tricuspid valve regurgitation. The estimated pulmonary arterial pressure is 47 mmHg. Mild pulmonary valve regurgitation. BP: 155 / 80 HR: 86 Rhythm: MEASUREMENTS (Male / Female) Normal Values Technical Quality: 2D ECHO LV Diastolic Diameter PLAX 6.3 cm 4.2 - 5.9 / 3.9 - 5.3 cm LV Systolic Diameter PLAX 5.5 cm IVS Diastolic Thickness 0.9 cm 0.6 - 1.0 / 0.6 - 0.9 cm LVPW Diastolic Thickness 0.9 cm 0.6 - 1.0 / 0.6 - 0.9 cm LV Relative Wall Thickness 0.3 RV Internal Dim ED PLAX 2.5 cm LVOT Diameter 2.1 cm LA Systolic Diameter LX 3.8 cm 3.0 - 4.0 / 2.7 - 3.8 cm LV Ejection Fraction MOD 4C 37.1 % LV Cardiac Index MOD 4C 3520.1 cm/minm LV Ejection Fraction 4C AL 36.4 % LV Cardiac Index 4C AL 3537.8 cm/minm M-MODE Aortic Root Diameter MM 2.7 cm LA Systolic Diameter MM 3.8 cm LA Ao Ratio MM 1.4 AV Cusp Separation MM 2.1 cm DOPPLER AV Peak Velocity 116.0 cm/s AV Peak Gradient 5.4 mmHg LVOT Peak Velocity 79.0 cm/s LVOT Peak Gradient 2.5 mmHg AV Area Cont Eq pk 2.4 cm MV Area PHT 6.1 cm Mitral E Point Velocity 113.0 cm/s Mitral A Point Velocity 110.3 cm/s Mitral E to A Ratio 1.0 TR Peak Velocity 303.0 cm/s TR Peak Gradient 36.7 mmHg Right Atrial Pressure 10.0 mmHg Pulmonary Artery Systolic Pressu 46.7 mmHg Right Ventricular Systolic Press 46.7 mmHg PV Peak Velocity 59.7 cm/s PV Peak Gradient 1.4 mmHg FINDINGS LEFT VENTRICLE The left ventricular systolic function is moderately to severely reduced with an estimated ejection fraction in the range of 30-35%. Normal left ventricular size. Wall thickness is normal. No regional wall motion abnormalities are present. RIGHT VENTRICLE Normal right ventricular size and systolic function. LEFT ATRIUM The left atrial size is normal. RIGHT ATRIUM The right atrial size is normal. ATRIAL SEPTUM Normal atrial septal thickness without atrial level shunting by limited color doppler interrogation. AORTA The aortic root and proximal ascending aorta are normal in size on limited imaging. MITRAL VALVE Structurally normal mitral valve. [id number] mitral valve regurgitation. AORTIC VALVE Trileaflet aortic valve. Aortic valve sclerosis is present. Trace aortic valve regurgitation. TRICUSPID VALVE Structurally normal tricuspid valve. There is trace tricuspid valve regurgitation. The estimated pulmonary arterial pressure is 46.7 mmHg. PULMONARY VALVE Mild pulmonary valve regurgitation. VESSELS There is less than 50% respiratory change in dimension of the inferior vena cava (abnormal). PERICARDIUM No pericardial effusion. Jeaneth Brown MD, FACC (Electronically Signed) Final Date:12 October 2017 19:41
[2017-10-12] MEDS ORDERED: ATORVASTATIN 80 MG TAB PO SCH (21:00)
[2017-10-12] MEDS: SODIUM BICARBONATE 650 MG TAB PO SCH (21:42)
[2017-10-13] VITALS (16 sets, daily range): BP systolic 142–158; BP diastolic 81–86; PULSE 73–99; RESP 16–19; TEMP 97.6–98.3; O2SAT 92–94
[2017-10-13] MEDS: hydrALAZINE HCL 10 MG TAB PO SCH ×3 (00:39→11:51)
[2017-10-13 04:04] LABS: AUTOMATED NEUTROPHIL # 4.2 TH/MM3 (1.8-7.7); BASOPHIL # 0.1 TH/MM3 (0-0.2); BASOPHIL % 0.9 % (0.0-2.0); EOSINOPHIL # 0.3 TH/MM3 (0-0.4); EOSINOPHIL % 3.9 % (0.0-4.0); HEMOGLOBIN 9.6 GM/DL (13.0-17.0); LYMPH % 20.7 % (9.0-44.0); LYMPHOCYTE # 1.4 TH/MM3 (1.0-4.8); MEAN CELL VOLUME 92.1 FL (80.0-100.0); MEAN CORPUSCULAR HEMOGLOBIN 30.6 PG (27.0-34.0); MEAN CORPUSCULAR HGB CONC 33.2 % (32.0-36.0); MEAN PLATELET VOLUME 9.5 FL (7.0-11.0); MONO % 9.6 % (0.0-8.0); MONOCYTE # 0.6 TH/MM3 (0-0.9); NEUT % 64.9 % (16.0-70.0); PLATELET COUNT 149 TH/MM3 (150-450); RED BLOOD COUNT 3.15 MIL/MM3 (4.50-5.90); WHITE BLOOD COUNT 6.5 TH/MM3 (4.0-11.0)
[2017-10-13 04:40] LABS: CALCIUM 6.9 MG/DL (8.5-10.1); CREATININE 3.78 MG/DL (0.60-1.30)
[2017-10-13 05:08] LABS: CALCIUM-PROTEIN CORRECTED 7.7 MG/DL (8.5-10.1); TOTAL PROTEIN 5.6 GM/DL (6.4-8.2)
[2017-10-13] MEDS: FUROSEMIDE 40 MG TAB PO SCH (09:03)
[2017-10-13] MEDS: CARVEDILOL 3.125 MG TAB PO SCH (09:03)
[2017-10-13] MEDS: SODIUM BICARBONATE 650 MG TAB PO SCH (09:03)
[2017-10-13] MEDS: PANTOPRAZOLE SOD 20 MG DELAYED RELEASE TAB PO SCH (09:03)
[2017-10-13] MEDS: CYANOCOBALAMIN 1,000 MCG TAB PO SCH (09:03)
[2017-10-13] MEDS: ALLOPURINOL 100 MG TAB PO SCH (09:03)
[2017-10-13] MEDS: DOXAZOSIN MESYLATE 2 MG TAB PO SCH (09:04)
--- NOTE | 2017-10-13 11:29 | HHI.NPPN ---
Subjective Renal Failure: Chronic, Acute, Stage IV Interval History His renal function is worse. He wants to be discharged. (Mesha Rizvi) Objective Data Data Vital Signs Date Time Temp Pulse Resp B/P (MAP) Pulse Ox O2 Delivery O2 Flow Rate FiO2 10/13/17 11:02 97.6 93 16 158/84 (108) 92 10/13/17 08:10 92 21 10/13/17 07:40 97.9 86 19 147/86 (106) 92 10/13/17 07:40 92 Room Air 10/13/17 06:00 81 10/13/17 05:00 74 10/13/17 04:00 76 10/13/17 03:00 73 10/13/17 03:00 98.3 83 18 142/81 (101) 94 10/13/17 02:00 75 10/13/17 01:00 78 10/13/17 00:00 94 Venturi Mask 6.00 50 10/13/17 00:00 79 10/12/17 23:50 94 Venturi Mask 50 10/12/17 23:00 91 10/12/17 23:00 98.7 72 16 140/78 (98) 94 10/12/17 22:45 92 Nasal Cannula 3.50 10/12/17 22:00 90 10/12/17 21:00 88 10/12/17 20:00 99.0 89 16 140/79 (99) 94 10/12/17 20:00 83 10/12/17 19:00 94 Nasal Cannula 2.00 10/12/17 19:00 83 10/12/17 17:50 139/76 (97) 10/12/17 17:34 92 10/12/17 16:00 82 10/12/17 15:31 98.3 81 19 132/74 (93) 92 10/12/17 15:00 77 10/12/17 14:02 81 10/12/17 13:00 80 10/12/17 12:00 82 (Mesha Rizvi) -: 10/13/17 0305 10/13/17 0305 Imaging Last 72 hours Impressions Renal Ultrasound 10/12/17 0000 Signed Impressions: Service Date/Time: Thursday, October 12, 2017 17:30 - CONCLUSION: 1. Moderate hydronephrosis left kidney of unknown etiology. Mild medical renal disease and the right kidney. Carlos Napoles MD Chest X-Ray 10/11/17 2023 Signed Impressions: Service Date/Time: Wednesday, October 11, 2017 23:13 - CONCLUSION: The lungs are clear. A Edilberto Barragan MD (Mesha Rizvi. SANFORIZING MACHINE OPERATOR) Physical Exam General Appearance: Well Developed, Well Nourished, Comfortable (Mesha Rizvi B. SANFORIZING MACHINE OPERATOR) Ears & Nose Ears & Nose Exam: Tympanic Membranes Normal (Mesha Rizvi B. SANFORIZING MACHINE OPERATOR) Throat Throat Exam: Oral Mucosa [place] & Moist (BelkysMesha B. SANFORIZING MACHINE OPERATOR) Pulmonary Resp Exam: Clear Bilaterally, Breath Sounds Equal, No Distress (Mesha Rizvi B. SANFORIZING MACHINE OPERATOR) Cardiology CV Exam: Regular, Normal Sinus Rhythm, Good Perfusion (Mesha Rizvi B. SANFORIZING MACHINE OPERATOR) Gastrointestinal/Abdomen GI Exam: Soft, Non-Tender, Bowel Sounds Present (Mesha Rizvi B. SANFORIZING MACHINE OPERATOR) Genitourinary Exam: Clear Urine (Mesha Rizvi B. SANFORIZING MACHINE OPERATOR) Musculoskeletal MS Exam: Joints Intact, Normal Gait, Normal Tone (Mesha Rizvi B. SANFORIZING MACHINE OPERATOR) Integumentary Skin Exam: Clear, Warm, Dry, Intact (Mesha Rizvi B. SANFORIZING MACHINE OPERATOR) Extremeties Extremities Exam: Pedal Pulses Palpable, Trace Edema (Mesha Rizvi B. SANFORIZING MACHINE OPERATOR) Neurologic Neuro Exam: Alert, Awake, Oriented, Speech Clear, Moving All Extremities (Mesha Rizvi B. SANFORIZING MACHINE OPERATOR) Psychiatric Psych Exam: Appropriate Responses (Mesha Rizvi BVirginia SANFORIZING MACHINE OPERATOR) Assessment/Plan Discussed Condition With: Patient Assessment Summary: BHAVESH/Acute Renal Failure, Proteinuria, CKD Stage IV Problem List: (1) Acute renal failure superimposed on stage 4 chronic kidney disease ICD Codes: N17.9 - Acute kidney failure, unspecified; N18.4 - Chronic kidney disease, stage 4 (severe) Plan: He has biopsy proven FSGS, his creatinine was 2.68, GFR 23 from May 2017 BHAVESH most likely due to increased renal vein pressure from CHF exacerbation, fluid retention. In addition imaging shows left sided hydronephrosis, etiology is uncertain. CT abd/pel (without contrast) ordered to further investigate We have asked the nurse to obtain a bladder scan, place key if he is retaining. Currently non oliguric. Urology has also been consulted Repeat labs Continue Lasix to 40 mg PO BID Avoid nephrotoxic agents. Cannot stop Protonix given hx of Williamson's esophagus. Renal panel in AM He should resume DAYSI but would advise to wait several days prior to starting. (2) Non-STEMI (non-ST elevated myocardial infarction) ICD Codes: I21.4 - Non-ST elevation (NSTEMI) myocardial infarction Status: Acute Plan: Off heparin gtt Cardiology recommends non invasive treatment (Mesha Rizvi) Plan patient was seen and examined. Renal US revealed moderate left sided hydronephrosis. We ordered CT abdomen and pelvis, however it was suggestive parapelvic cyst. Patient's renal function is worse, he wanted to be discharged. (Rupert Gilbert MD) Mesha Rizvi Oct 13, 2017 11:29 Rupert Gilbert MD Oct 13, 2017 20:36
--- NOTE | 2017-10-13 12:06 | MB ---
cc: Nacho Casanova DO DATE OF CONSULT: Mr. 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 He was recently admitted with shortness of breath and some chest pain. He underwent a renal bladder ultrasound that showed mild or moderate left hydronephrosis. He denies any flank pain or voiding complaints. He notes nocturia times 1-2 with a good stream. He denies any history of stones or gross hematuria. MEDICAL HISTORY: Includes coronary artery disease, hypertension, hyperlipidemia, and chronic kidney disease. PAST SURGICAL HISTORY: Cardiac catheterization with stents and lower extremity bypass. MEDICATIONS: Please refer to the chart. HE IS ALLERGIC TO PENICILLIN. FAMILY HISTORY: Noted for heart disease and diabetes. He denies any family history of prostate cancer. SOCIAL HISTORY: Denies smoking, drinking or using drugs. He is an avid golfer. REVIEW OF SYSTEMS: He presently denies chest pain or shortness of breath. Denies any abdominal pain. Denies flank pain. Denies voiding complaints. Denies gait disturbances, bleeding disorders. Denies psychiatric problems. Remaining review of systems was reviewed and is negative. Present vitals today, temp is 97.6, heart rate 93, respiratory rate 18, 158/84. He is well-developed, well-nourished, 72-year-old male in no acute distress. HEENT: He is normocephalic, atraumatic. Pupils equal, round regular, reactive to light. Extraocular movements intact. NECK: Supple. HEART: Regular rate and rhythm. LUNGS: Clear. ABDOMEN: Soft, nontender, nondistended. There is no CVA tenderness noted. GENITOURINARY: Normal phallus. Testes descended. EXTREMITIES: Show no evidence of cyanosis, clubbing or edema. NEUROLOGIC: Alert and awake. Cranial nerves 2-12 are intact. White count 6.5, hemoglobin 9.6, hematocrit 29.0, platelet count of 149. Sodium 144, potassium 3.6, chloride 111, CO2 23, BUN 42, creatinine 3.7, glucose of 89. PT 11.7, INR 1.2. PTT is 41.7. Urinalysis is negative again. IMAGING STUDIES: Renal ultrasound shows moderate hydronephrosis of the left kidney. ASSESSMENT: A pleasant 72-year-old male admitted with shortness of breath and some chest pain, found to have left moderate hydronephrosis with a history of chronic kidney disease stage IV due to glomerulonephritis. CT scan of the abdomen and pelvis is currently pending. We will follow with results of this CAT scan. If a left double-J stent is necessary, we will perform in the a.m. If unclear etiology, may benefit from a renal scan. We will follow with you. Thank you for the consult. DO MITRA Gayle/HAROLDO , 11:34 AM , 12:05 PM
--- NOTE | 2017-10-13 12:28 | RADRPT ---
EXAM DATE/TIME: 10/13/2017 11:38 [facility] COMPARISON: US KIDNEY/RENAL/BLADDER, October 12, 2017, 17:30. INDICATIONS : Hydronnephrosis ORAL CONTRAST: No oral contrast ingested. RADIATION DOSE: 6.64 CTDIvol (mGy) MEDICAL HISTORY : Cardiovascular disease. Hypertension. Renal failure SURGICAL HISTORY : None. ENCOUNTER: Initial ACUITY: 1 day PAIN SCALE: 0/10 LOCATION: Abdomen TECHNIQUE: Volumetric scanning of the abdomen and pelvis was performed. Using automated exposure control and ad justment of the mA and/or kV according to patient size, radiation dose was kept as low as reasonably achievable to obtain optimal diagnostic quality images. DICOM format image data is available electro nically for review and comparison. FINDINGS: LOWER LUNGS: Bibasilar consolidation and small pleural effusions. LIVER: Homogeneous density without lesion. There is no dilation of the biliary tree. No calcified gallston es. SPLEEN: Normal size without lesion. PANCREAS: Within normal limits. KIDNEYS: Normal in size and shape. There is no mass, stone, or hydronephrosis. Large structure right from the superior pole and extends into the parapelvic region. I do not believe there is hydronephrosis left kidney. ADRENAL GLANDS: Within normal limits. VASCULAR: There is atherosclerotic changes and bulging without aneurysm. BOWEL/MESENTERY: Diverticulosis without diverticulitis. There is no free intraperitoneal air or fluid. ABDOMINAL WALL: Within normal limits. RETROPERITONEUM: There is no lymphadenopathy. BLADDER: No wall thickening or mass. REPRODUCTIVE: Within normal limits. INGUINAL: There is no lymphadenopathy or hernia. MUSCULOSKELETAL: Within normal limits for patient age. CONCLUSION: 1. Prominent cystic structure left kidney believed to be related to the parapelvic cyst versus less l ikely hydronephrosis. 2. Bibasilar consolidation and small pleural effusions. 3. Diverticulosis without diverticulitis Enrico Gonzalez MD on October 13, 2017 at 12:22 Board Certified Radiologist. This report was verified electronically.
[2017-10-13] MEDS ORDERED: TORS10TA2 PO (13:50)
[2017-10-13] MEDS ORDERED: CARV6.252 PO (13:50)
[2017-10-13] MEDS ORDERED: HYDR-3798 PO (13:50)
--- NOTE | 2017-10-13 13:55 | HHI.PR ---
Subjective Remarks Follow-up for CHF, acute on chronic kidney disease. Patient is currently doing well. Ambulating in the room. He denies any chest pain, shortness of breath, fever or chills. His urinating well. He would like to go home and follow-up with his gas producer in the outpatient setting. Objective Vitals Vital Signs Date Time Temp Pulse Resp B/P (MAP) Pulse Ox O2 Delivery O2 Flow Rate FiO2 10/13/17 12:00 88 10/13/17 11:02 97.6 93 16 158/84 (108) 92 10/13/17 11:00 99 10/13/17 10:00 82 10/13/17 09:00 94 10/13/17 08:10 92 21 10/13/17 08:00 86 10/13/17 07:40 97.9 86 19 147/86 (106) 92 10/13/17 07:40 92 Room Air 10/13/17 07:00 82 10/13/17 06:00 81 10/13/17 05:00 74 10/13/17 04:00 76 10/13/17 03:00 73 10/13/17 03:00 98.3 83 18 142/81 (101) 94 10/13/17 02:00 75 10/13/17 01:00 78 10/13/17 00:00 94 Venturi Mask 6.00 50 10/13/17 00:00 79 10/12/17 23:50 94 Venturi Mask 50 10/12/17 23:00 91 10/12/17 23:00 98.7 72 16 140/78 (98) 94 10/12/17 22:45 92 Nasal Cannula 3.50 10/12/17 22:00 90 10/12/17 21:00 88 10/12/17 20:00 99.0 89 16 140/79 (99) 94 10/12/17 20:00 83 10/12/17 19:00 94 Nasal Cannula 2.00 10/12/17 19:00 83 10/12/17 17:50 139/76 (97) 10/12/17 17:34 92 10/12/17 16:00 82 10/12/17 15:31 98.3 81 19 132/74 (93) 92 10/12/17 15:00 77 10/12/17 14:02 81 I/O 10/12/17 10/12/17 10/12/17 10/13/17 10/13/17 10/13/17 07:00 15:00 23:00 07:00 15:00 23:00 Intake Total 100 ml 740 ml 720 ml Output Total 2100 ml 425 ml Balance 100 ml -1360 ml 295 ml Intake Oral 740 ml 720 ml IV Total 100 ml Output Urine Total 2100 ml 425 ml # Bowel Movements 0 Result Diagram: 10/13/17 0305 10/13/17 0305 Imaging Last Impressions Abdomen/Pelvis CT 10/13/17 0000 Signed Impressions: Service Date/Time: Friday, October 13, 2017 11:38 - CONCLUSION: 1. Prominent cystic structure left kidney believed to be related to the parapelvic cyst versus less likely hydronephrosis. 2. Bibasilar consolidation and small pleural effusions. 3. Diverticulosis without diverticulitis Enrico Gonzalez MD Renal Ultrasound 10/12/17 0000 Signed Impressions: Service Date/Time: Thursday, October 12, 2017 17:30 - CONCLUSION: 1. Moderate hydronephrosis left kidney of unknown etiology. Mild medical renal disease and the right kidney. Carlos Napoles MD Chest X-Ray 10/11/17 2248 Signed Impressions: Service Date/Time: Wednesday, October 11, 2017 23:13 - CONCLUSION: The lungs are clear. Mckayla Barragan MD Objective Remarks GENERAL: Alert, oriented 3, NAD. SKIN: Warm and dry. HEAD: Normocephalic. EYES: No scleral icterus. No injection or drainage. NECK: Supple, trachea midline. No JVD or lymphadenopathy. CARDIOVASCULAR: Regular rate and rhythm without murmurs, gallops, or rubs. RESPIRATORY: Breath sounds equal bilaterally. No accessory muscle use. GASTROINTESTINAL: Abdomen soft, non-tender, nondistended. MUSCULOSKELETAL: No cyanosis, or edema. BACK: Nontender without obvious deformity. No CVA tenderness. Procedures Echocardiogram 10/12/2017 The left ventricular systolic function is moderately to severely reduced with an estimated ejection fraction in the range of 30-35%. Normal left ventricular size. Wall thickness is normal. No regional wall motion abnormalities are present. [id number] mitral valve regurgitation. Aortic valve sclerosis is present. Trace aortic valve regurgitation. There is trace tricuspid valve regurgitation. The estimated pulmonary arterial pressure is 47 mmHg. Mild pulmonary valve regurgitation. A/P Assessment and Plan Acute exacerbation of CHF - Echo shows EF 30-35%. Likely non-ischemic. - Patient is already on Carvedilol. - However due to acute kidney injury we will hold off using DAYSI inhibitor or spironolactone for now. -Patient was patient received Lasix in the hospital and will continue torsemide upon discharge Elevated troponin -Mild elevation in troponin with likely related to CHF, acute kidney injury on chronic kidney disease. -Cardiology recommended no intervention at this point. -Heparin was discontinued after 1 day. Acute kidney injury Chronic kidney disease Stage IV Creatinine 3.63, baseline below 3.0. We consulted patients gas producer Dr. Gilbert. Patient's creatinine went up to 3.78 today. Patient is making good amount of urine. I discussed with gas producer who is okay with patient going home and follow-up in the outpatient setting. Advised patient to avoid DAYSI inhibitor, allopurinol. Spironolactone was not initiated due to acute kidney injury. Full code. Discharge patient to home Condition on discharge: Improved Heart healthy Diet as tolerated Ad Maribell activity Rx written: Carvedilol 6.25 mg twice daily Hydralazine 10 mg every 8 hours Torsemide 10 mg p.o. twice daily Follow-up with primary care physician within 2 weeks, nephrology within 3-5 days , and cardiology within 1 week. James Jacques DO Oct 13, 2017 13:55
[2017-10-13] MEDS ORDERED: ETOMIDATE 40 MG/20 ML VIAL ONE (14:56)
--- NOTE | 2017-10-14 08:24 | PQ ---
Physician Query Response Document PATIENT: MICHELLE TERRAZAS : 1945 ADMIT DATE: 10/12/2017 12:25 AM DISCH DATE: 10/13/2017 4:00 PM RESPONDING PROVIDER #: paco QUERY TEXT: CDS Clarification Acute respiratory failure with hypoxia, POA, in the setting of CHF exacerbation requiring treatment w ith BIPAP. Other explanation of clinical findings. Unable to determine (no explanation for clinical findings). Please clarify and document your clinical opinion in the progress notes and discharge summary includi ng the definitive and/or presumptive diagnosis (suspected or probable), related to the above clinical findings. Please include clinical findings supporting your diagnosis. Thank you, Quynh Multani RN CDS: Quynh Multani RN Patient Unit: [facility] Contact Number: [phone] Room: 458 The patient's Clinical Indicators include: * Clinical Indicators: Resp 27, SOB, 83% RA O2Sat per EMS, 94% O2Sat on BiPAP * Risk Factors: CHF exacerbation * Treatment: BiPAP, Pulse Oximetry Query created by: Alisson Multani on 10/14/2017 12:00 AM RESPONSE TEXT: Acute respiratory failure with hypoxia present on admission. Likely due to Acute CHF exacerbation. O2 sat was noted to be 83%, improved with application of BiPAP. Resolved during this admission with farrah atment of CHF. Electronically signed by: Yves Jacques DO 10/14/2017 8:19 AM
== END 2017-10-13 16:00 | disposition home or self-care (01) | DRG 291 ==
LOC: NEPC 22:43 → NEDA 10-12 00:25 → HCPC 10-12 03:56
PROVIDERS: ADMIT Hospitalist; ATTEND Hospitalist
PROC: 5A09357 Assistance with Respiratory Ventilation, Less than 24 Consecutive Hours, Continuous Positive Airway Pressure (ICD-10-PCS; principal; 2017-10-11)
DX: I13.0 Hypertensive heart and chronic kidney disease with heart failure and stage 1 through stage 4 chronic kidney disease, or unspecified chronic kidney disease (principal); J96.01 Acute respiratory failure with hypoxia; N18.4 Chronic kidney disease, stage 4 (severe); E87.2 Acidosis; N17.9 Acute kidney failure, unspecified; N13.30 Unspecified hydronephrosis; I50.9 Heart failure, unspecified; I25.10 Atherosclerotic heart disease of native coronary artery without angina pectoris; E83.51 Hypocalcemia; E78.5 Hyperlipidemia, unspecified; I73.9 Peripheral vascular disease, unspecified; K22.70 Barrett's esophagus without dysplasia; N05.9 Unspecified nephritic syndrome with unspecified morphologic changes; R80.9 Proteinuria, unspecified; E83.42 Hypomagnesemia; I35.8 Other nonrheumatic aortic valve disorders; I34.0 Nonrheumatic mitral (valve) insufficiency; I37.1 Nonrheumatic pulmonary valve insufficiency; Z95.5 Presence of coronary angioplasty implant and graft; Z72.0 Tobacco use; Z82.49 Family history of ischemic heart disease and other diseases of the circulatory system
CPT/HCPCS: 36600; 71045; 74176; 76775; 80048; 81001; 82550; 82805; 83735; 83880; 84155; 84484; 85025; 85027; 85610; 85730; 93005; 93306; 94002; 94003; 99291; J0610; J1644; J1940; J3475

== ENCOUNTER 2017-11-16 06:29 | Observation (INO) | payer MEDICARE, OTHER ==
[~2017-11-16] VITALS: Ht 167.6 cm; Wt 75.0 kg
[2017-11-16] VITALS (13 sets, daily range): BP systolic 114–182; BP diastolic 67–108; PULSE 83–104; RESP 16–22; TEMP 97.7–98.5; O2SAT 95–100
[~2017-11-16 06:29] MED LIST: AMLO10 PO; ASPI-183 PO; ATOR80TA45 PO; CALC0.25 PO; CARV6.252 PO; DOXA1TAB35 PO; HYDR-3798 PO; NITR0.4S SL; OMEP20TA93 PO; SODI650T PO; TORS10TA2 PO; VITA10002 PO
[2017-11-16] MEDS ORDERED: SODIUM CHLORIDE 0.9% FLUSH 10 ML FLUSH IVF PRN (07:00)
[2017-11-16] MEDS ORDERED: FUROSEMIDE 40 MG/4 ML VIAL IVP ONE (07:00)
[2017-11-16 07:12] LABS: AUTOMATED NEUTROPHIL # 7.3 TH/MM3 (1.8-7.7); BASOPHIL # 0.1 TH/MM3 (0-0.2); BASOPHIL % 0.9 % (0.0-2.0); EOSINOPHIL # 0.2 TH/MM3 (0-0.4); EOSINOPHIL % 2.1 % (0.0-4.0); HEMATOCRIT 33.6 % (39.0-51.0); HEMOGLOBIN 11.1 GM/DL (13.0-17.0); LYMPH % 5.3 % (9.0-44.0); LYMPHOCYTE # 0.5 TH/MM3 (1.0-4.8); MEAN CELL VOLUME 90.1 FL (80.0-100.0); MEAN CORPUSCULAR HEMOGLOBIN 29.7 PG (27.0-34.0); MEAN PLATELET VOLUME 9.6 FL (7.0-11.0); MONO % 8.3 % (0.0-8.0); MONOCYTE # 0.7 TH/MM3 (0-0.9); NEUT % 83.4 % (16.0-70.0); PLATELET COUNT 170 TH/MM3 (150-450); RED BLOOD COUNT 3.73 MIL/MM3 (4.50-5.90); RED CELL DISTRIBUTION WIDTH 14.8 % (11.6-17.2); WHITE BLOOD COUNT 8.7 TH/MM3 (4.0-11.0)
--- NOTE | 2017-11-16 07:14 | PD ---
HPI Chief Complaint: Respiratory Distress Time Seen by Provider: 06:37 Travel History International Travel<30 days: No Contact w/Intl Traveler<30days: No Traveled to known affect area: No History of Present Illness HPI The patient is a 72 year old male who presents to the [facility] emergency department with a history of shortness of that began last night prior to going to bed. He denies having any significant cough associated with this. He reports that he has noticed some swelling of his feet. The patient has a prior history of congestive heart failure and chronic renal insufficiency. He reports that he ran out of his Torsemide on . He has continued to take his hydralazine for his high blood pressure. He denies having any associated chest pain or pressure. The patient was brought in by ambulance services. The patient was noted to have an O2 saturation on room air of 90%. The patient was given a single sublingual dose of nitroglycerin as he was noted to be hypertensive in the 180s systolic. The patient was then placed on CPAP. Patient had improvement in his O2 saturations to 97% on arrival. On review of systems, he denies having any known recent fevers, congestion, neck pain, abdominal pain, vomiting, diarrhea, urinary symptoms, or neurologic symptoms. PFSH Past Medical History Narrative Medical The patient's past medical history is significant for hypertension, congestive heart failure, chronic renal insufficiency, dyslipidemia, gout, peripheral vascular disease Cancer: No Cardiac Catheterization: Yes Congestive Heart Failure: Yes Diminished Hearing: No Endocrine: No Gout: Yes Genitourinary: No Hypertension: Yes Immune Disorder: No Musculoskeletal: No Neurologic: No Psychiatric: No Reproductive: No Respiratory: No Renal Failure: Yes Triglycerides - High: Yes Past Surgical History Narrative Surgical The patient's past surgical history is significant for left vein graft, history of a vasectomy Cardiac Surgery: Yes (LT LEG VEIN GRAFT, HX STENTS) Gynecologic Surgery: Yes (VASECTOMY 40 YEARS AGO) Other Surgery: Yes Social History Alcohol Use: No Tobacco Use: Yes Substance Use: No Allergies-Medications (Allergen,Severity, Reaction): Coded Allergies: Penicillins (Verified Allergy, Unknown, 11/16/17) Uncoded Allergies: pcn (Allergy, Severe, Anaphylaxis, 10/11/17) Reported Meds & Prescriptions Reported Meds & Active Scripts Active Hydralazine HCl 10 Mg Tablet 10 Mg PO Q8HR Torsemide 10 Mg Tab 10 Mg PO BID Carvedilol 6.25 Mg Tab 6.25 Mg PO BID Reported Vitamin B-12 (Cyanocobalamin) 1,000 Mcg Tab 1,000 Mcg PO DAILY Aspirin 325 Mg Tab 325 Mg PO ONCE Sodium Bicarbonate 650 Mg Tab 650 Mg PO DAILY Nitrostat SL (Nitroglycerin) 0.4 Mg Subl 0.4 Mg SL DIRECTED PRN 1 tablet under the tongue as needed for chest pain. Repeat every 5 minutes for a total of 3 DOSES or call 911 if NO relief. Calcitriol 0.25 Mcg Cap 0.25 Mcg PO EVERY OTHER DAY Doxazosin (Doxazosin Mesylate) 2 Mg Tab 2 Mg PO DAILY Norvasc (Amlodipine Besylate) 10 Mg Tab 10 Mg PO DAILY Omeprazole 20 Mg Tab 20 Mg PO DAILY Atorvastatin (Atorvastatin Calcium) 80 Mg Tab 80 Mg PO HS Review of Systems Except as stated in HPI: all other systems reviewed are Neg General / Constitutional: No: Fever Eyes: No: Visual changes HENT: No: Headaches Cardiovascular: Positive: Dyspnea on exertion, Edema, No: Chest Pain or Discomfort Respiratory: Positive: Shortness of Breath, No: Cough Gastrointestinal: No: Abdominal Pain Genitourinary: No: Dysuria Musculoskeletal: No: Pain Skin: No Rash Neurologic: No: Weakness Psychiatric: No: Depression Endocrine: No: Polydipsia Hematologic/Lymphatic: No: Easy Bruising Physical Exam Narrative General: The patient is well-developed well-nourished male in no acute distress. Head and Neck exam: Head is normocephalic atraumatic. Eyes: EOMI, pupils are equal round and reactive to light. Nose: Midline septum with pink mucous membranes Mouth: Dentition unremarkable. Moist mucus membranes. Posterior oropharynx is not erythematous. No tonsillar hypertrophy. Uvula midline. Airway patent. Neck: No palpable lymphadenopathy. No nuchal rigidity. No thyromegaly. Cardiovascular: Sinus tachycardia in the low 100 without murmurs, gallops, or rubs. No pulse deficit to the extremities on simultaneous auscultation and palpation of his radial artery. Lungs: Decreased breath sounds are audible in bilateral lung bases, crackles audible in the right lower lung base, no rhonchi wheezes. No accessory muscle use noted. No tripoding or paroxysmal abdominal breathing peer Abdomen: Soft, without tenderness to palpation in all 4 quadrants of the abdomen. No guarding, rebound, or rigidity. Normal bowel sounds are audible. No tenderness on palpation of McBurney's point. Extremities: No clubbing or cyanosis. The patient has trace pedal edema bilaterally. 2+ pulses in all 4 extremities. No calf tenderness on palpation. Back: No spinous process tenderness to palpation. No costovertebral angle tenderness to palpation. Neurologic Exam: Grossly nonfocal. Skin Exam: No rash noted. Intact skin that is warm and dry. Data Data Last Documented VS Vital Signs Date Time Temp Pulse Resp B/P (MAP) Pulse Ox O2 Delivery O2 Flow Rate FiO2 11/16/17 07:00 100 40 11/16/17 06:39 CPAP 11/16/17 06:39 97.7 11/16/17 06:32 104 20 182/108 (132) Orders Orders Complete Blood Count With Diff (11/16/17:47) Comprehensive Metabolic Panel (11/16/17:47) B-Type Natriuretic Peptide (11/16/17:47) Act Partial Throm Time (Ptt) (11/16/17:47) Prothrombin Time / Inr (Pt) (11/16/17:47) Magnesium (Mg) (11/16/17 06:47) Ckmb (Isoenzyme) Profile (11/16/17:47) Troponin I (11/16/17:47) Arterial Blood Gas (Abg) (11/16/17:47) Urinalysis - C+S If Indicated (11/16/17:47) Iv Access Insert/Monitor (11/16/17:47) Electrocardiogram (11/16/17:47) Ecg Monitoring (11/16/17:47) Oximetry (11/16/17:47) Oxygen Administration (11/16/17:47) Chest, Single Ap (11/16/17:47) Sodium Chloride 0.9% Flush (Ns Flush) (11/16/17 07:00) Furosemide Inj (Lasix Inj) (11/16/17 07:00) Resp Bipap / Cpap Non Invas Vt (11/16/17 06:47) Labs Laboratory Tests Test 11/16/17:47 Blood Gas Puncture Site RT RADIAL Blood Gas Patient Temperature 98.6 Blood Gas HCO3 19 mmol/L Blood Gas Base Excess -4.7 mmol/L Blood Gas Oxygen Saturation 96 % Arterial Blood pH 7.40 Arterial Blood Partial Pressure CO2 32 mmHg Arterial Blood Partial Pressure O2 96 mmHG Arterial Blood Oxygen Content 14.4 Vol % Arterial Blood Carboxyhemoglobin 1.3 % Arterial Blood Methemoglobin 0.7 % Blood Gas Hemoglobin 10.6 G/DL Oxygen Delivery Device BiPAP Blood Gas Ventilator Setting IPAP 10 EPAP 5 Blood Gas Inspired Oxygen 60 % MDM Medical Decision Making Medical Screen Exam Complete: Yes Emergency Medical Condition: Yes Medical Record Reviewed: Yes Differential Diagnosis Congestive heart failure exacerbation, versus acute coronary syndrome, versus pulmonary embolism, versus pneumonia, versus COPD Narrative Course During the course of the patient's emergency department visit, the patient's history, examination, and differential diagnosis were reviewed with the patient. The patient was placed on a proof inspector with oximetry and frequent blood pressure monitoring. The patient had IV access obtained and blood work sent for analysis. Patient had an EKG done on arrival that shows a sinus tachycardia rate of 106, QRS duration is 115 ms, QTC [address]-T wave abnormalities. No acute ST segment elevation is noted. The patient was continued on noninvasive ventilation and was switched from CPAP to BiPAP by respiratory therapy. The patient was tolerating this well. The patient's O2 saturation on BiPAP was 99-100%. An ABG will be ordered. The patient was initially provided Lasix 40 mg IV, nitroglycerin 1 inch the chest wall, aspirin 324 mg p.o. 1.. The patient's laboratory studies and imaging studies are pending at the conclusion of my shift. The patient's case was checked out to the oncoming emergency physician, . Anticipate that the patient will be admitted for continued evaluation and treatment. Diagnosis Primary Impression: Shortness of breath Mary Beth Rolon MD Nov 16, 2017 07:14
[2017-11-16 07:24] LABS: INTERNATIONAL NORMALIZED RATIO 1.2 RATIO; PROTHROMBIN TIME - PATIENT 12.1 SEC (9.8-11.6)
--- NOTE | 2017-11-16 07:30 | RADRPT ---
EXAM DATE/TIME: 11/16/2017 07:10 [place] COMPARISON: CT ABDOMEN & PELVIS W/O CONTRAST, October 13, 2017, 11:38. CHEST SINGLE AP, October 11, 2017, 23:13. INDICATIONS : Shortness of breath. MEDICAL HISTORY : Hypertension. Dyspnea SURGICAL HISTORY : Cardiac cath ENCOUNTER: Initial ACUITY: 1 day PAIN SCORE: 0/10 LOCATION: Bilateral chest FINDINGS: Portable AP view of the chest demonstrates cardiac silhouette size at the upper limits for normal. Th ere are interstitial opacities bilaterally Rodolfo B-lines on the right. No pleural effusion or pneumo thorax is visualized. The bones and soft tissues demonstrate no acute finding. CONCLUSION: Abnormal interstitial opacities bilaterally, new from the prior study. The pattern and appearance is suggestive of interstitial pulmonary edema. Angus Angeles MD on November 16, 2017 at 7:27 Board Certified Radiologist. This report was verified electronically.
[2017-11-16 07:32] LABS: ALBUMIN 3.3 GM/DL (3.4-5.0); ALT (GPT) 65 U/L (12-78); AST (GOT) 19 U/L (15-37); BICARBONATE 20.7 MEQ/L (21.0-32.0); BLOOD UREA NITROGEN 54 MG/DL (7-18); CALCIUM 8.2 MG/DL (8.5-10.1); CHLORIDE 113 MEQ/L (98-107); CREATININE 3.45 MG/DL (0.60-1.30); GLOMERULAR FILTRATION RATE 18 ML/MIN (>89); GLUCOSE,RANDOM 141 MG/DL (74-106); MAGNESIUM 1.2 MG/DL (1.5-2.5); SODIUM (NA) 146 MEQ/L (136-145)
[2017-11-16 07:37] LABS: ALKALINE PHOSPHATASE 151 U/L (45-117); TOTAL BILIRUBIN ADULT 0.7 MG/DL (0.2-1.0); TOTAL PROTEIN 6.9 GM/DL (6.4-8.2); TROPONIN I 0.11 NG/ML (0.02-0.05)
[2017-11-16] MEDS ORDERED: NITROGLYCERIN 2% OINT 1 GM PACKET TOPICAL ONE (08:00)
[2017-11-16] MEDS ORDERED: ASPIRIN 81 MG CHEW TAB CHEW ONE (08:00)
--- NOTE | 2017-11-16 09:08 | PD ---
Physical Exam Date Seen by Provider: Nov 16, 2017 Narrative I assumed care of this patient at 7 AM at change of shift. He presented with dyspnea. He has a history of congestive heart failure. He ran out of his Lasix approximately 4 days ago. He states that he tried to get it refilled but he did not have any refills and his doctor did not call him in a refill. Data Data Last Documented VS Vital Signs Date Time Temp Pulse Resp B/P (MAP) Pulse Ox O2 Delivery O2 Flow Rate FiO2 11/16/17 08:43 96 BiPAP 40 11/16/17 08:43 92 22 163/100 (121) 11/16/17 06:39 97.7 Orders Orders Complete Blood Count With Diff (11/16/17 06:47) Comprehensive Metabolic Panel (11/16/17 06:47) B-Type Natriuretic Peptide (11/16/17 06:47) Act Partial Throm Time (Ptt) (11/16/17 06:47) Prothrombin Time / Inr (Pt) (11/16/17 06:47) Magnesium (Mg) (11/16/17 06:47) Ckmb (Isoenzyme) Profile (11/16/17 06:47) Troponin I (11/16/17 06:47) Arterial Blood Gas (Abg) (11/16/17 06:47) Urinalysis - C+S If Indicated (11/16/17 06:47) Iv Access Insert/Monitor (11/16/17 06:47) Electrocardiogram (11/16/17 06:47) Ecg Monitoring (11/16/17 06:47) Oximetry (11/16/17 06:47) Oxygen Administration (11/16/17 06:47) Chest, Single Ap (11/16/17 06:47) Sodium Chloride 0.9% Flush (Ns Flush) (11/16/17 07:00) Furosemide Inj (Lasix Inj) (11/16/17 07:00) Resp Bipap / Cpap Non Invas Vt (11/16/17 06:47) Aspirin Chew (Aspirin Chew) (11/16/17 08:00) Nitroglycerin 2% Oint (Nitroglycerin 2% (11/16/17 08:00) Resp Request For Service (11/16/17 ) (Hub Use Only)Inp Phy Cons/Ref (11/16/17 ) Labs Laboratory Tests Test 11/16/17 06:47 11/16/17 06:51 Blood Gas Puncture Site RT RADIAL Blood Gas Patient Temperature 98.6 Blood Gas HCO3 19 mmol/L Blood Gas Base Excess -4.7 mmol/L Blood Gas Oxygen Saturation 96 % Arterial Blood pH 7.40 Arterial Blood Partial Pressure CO2 32 mmHg Arterial Blood Partial Pressure O2 96 mmHG Arterial Blood Oxygen Content 14.4 Vol % Arterial Blood Carboxyhemoglobin 1.3 % Arterial Blood Methemoglobin 0.7 % Blood Gas Hemoglobin 10.6 G/DL Oxygen Delivery Device BiPAP Blood Gas Ventilator Setting IPAP 10 EPAP 5 Blood Gas Inspired Oxygen 60 % White Blood Count 8.7 TH/MM3 Red Blood Count 3.73 MIL/MM3 Hemoglobin 11.1 GM/DL Hematocrit 33.6 % Mean Corpuscular Volume 90.1 FL Mean Corpuscular Hemoglobin 29.7 PG Mean Corpuscular Hemoglobin Concent 33.0 % Red Cell Distribution Width 14.8 % Platelet Count 170 TH/MM3 Mean Platelet Volume 9.6 FL Neutrophils (%) (Auto) 83.4 % Lymphocytes (%) (Auto) 5.3 % Monocytes (%) (Auto) 8.3 % Eosinophils (%) (Auto) 2.1 % Basophils (%) (Auto) 0.9 % Neutrophils # (Auto) 7.3 TH/MM3 Lymphocytes # (Auto) 0.5 TH/MM3 Monocytes # (Auto) 0.7 TH/MM3 Eosinophils # (Auto) 0.2 TH/MM3 Basophils # (Auto) 0.1 TH/MM3 CBC Comment DIFF FINAL Differential Comment Prothrombin Time 12.1 SEC Prothromb Time International Ratio 1.2 RATIO Activated Partial Thromboplast Time 28.6 SEC Blood Urea Nitrogen 54 MG/DL Creatinine 3.45 MG/DL Random Glucose 141 MG/DL Total Protein 6.9 GM/DL Albumin 3.3 GM/DL Calcium Level 8.2 MG/DL Magnesium Level 1.2 MG/DL Alkaline Phosphatase 151 U/L Aspartate Amino Transf (AST/SGOT) 19 U/L Alanine Aminotransferase (ALT/SGPT) 65 U/L Total Bilirubin 0.7 MG/DL Sodium Level 146 MEQ/L Potassium Level 4.2 MEQ/L Chloride Level 113 MEQ/L Carbon Dioxide Level 20.7 MEQ/L Anion Gap 12 MEQ/L Estimat Glomerular Filtration Rate 18 ML/MIN Total Creatine Kinase 59 U/L Troponin I 0.11 NG/ML B-Type Natriuretic Peptide 1780 PG/ML [facility] Supervised Visit with GALINA: No Interpretation(s) EKG shows a sinus rhythm with no acute ST segment changes. Differential Diagnosis Differential diagnosis of dyspnea includes but is not limited to congestive heart failure, pneumonia, wheezing, pneumothorax, pulmonary embolism Narrative Course This patient presented with dyspnea. He was placed on BiPAP by EVAC. BiPAP has been weaned to oxygen. CBC & BMP Diagram 11/16/17 06:51 Total Protein 6.9, Albumin 3.3 L, Calcium Level 8.2 L, Magnesium Level 1.2 L, Alkaline Phosphatase 151 H, Aspartate Amino Transf (AST/SGOT) 19, Alanine Aminotransferase (ALT/SGPT) 65, Total Bilirubin 0.7 BNP 1780 trop 0.11 (probably d/t CKD) Last Impressions Chest X-Ray 11/16/17 0647 Signed Impressions: Service Date/Time: Thursday, November 16, 2017 07:10 - CONCLUSION: Abnormal interstitial opacities bilaterally, new from the prior study. The pattern and appearance is suggestive of interstitial pulmonary edema. Angus Angeles MD The chest x-ray was independently reviewed by me. In addition to BiPAP, patient has been treated in the emergency department with Nitropaste and Lasix. The BiPAP has been weaned to nasal cannula oxygen. Physician Communication Physician Communication Dr. Erickson will admit to the rapid decision unit Diagnosis Primary Impression: Shortness of breath Additional Impressions: Congestive heart failure Qualified Codes: I50.9 - Heart failure, unspecified Chronic kidney disease Qualified Codes: N18.4 - Chronic kidney disease, stage 4 (severe) Admitting Information Admitting Physician Requests: Observation Condition: Stable Dayanara Del Valle MD Nov 16, 2017 09:08
[2017-11-16] MEDS ORDERED: ONDANSETRON HCL 4 MG/2 ML VIAL IVP PRN (09:30)
[2017-11-16] MEDS ORDERED: MAGNESIUM HYDROXIDE SUSP 30 ML CUP PO PRN (09:30)
[2017-11-16] MEDS ORDERED: NALOXONE HCL 0.4 MG/ML AMP IV PUSH PRN (09:30)
[2017-11-16] MEDS ORDERED: ASPIRIN 325 MG TAB PO ONE (09:30)
[2017-11-16] MEDS ORDERED: NITROGLYCERIN 0.4 MG SL 25 TABS/BTL SL PRN (09:30)
[2017-11-16] MEDS ORDERED: SODIUM CHLORIDE 0.9% FLUSH 10 ML FLUSH IV FLUSH PRN (09:30)
--- NOTE | 2017-11-16 09:31 | HHI.HP ---
[facility]Staff Admission Diagnosis CHF Diagnoses: Travel History International Travel<30 Days: No Contact w/Intl Traveler <30 Da: No Traveled to Known Affected Are: No History of Present Illness Mr. Zaragoza is a 72-year-old male. He has baseline congestive heart failure. He ran out of his torsemide and was unable to use his torsemide for the last 4 days and subsequently developed fluid overload. He presents to the emergency department respiratory distress with fluid overload. BiPAP was used initially. Lasix is provided in the ER. He has since been able to wean off the BiPAP and shows clinical improvement thus far. Further diuresis as needed. Review of Systems Constitutional: COMPLAINS OF: Fatigue, DENIES: Fever, Chills Eyes: DENIES: Diplopia, Eye inflammation, Eye pain Ears, nose, mouth, throat: DENIES: Hearing loss, Vertigo, Nasal discharge Respiratory: COMPLAINS OF: Shortness of breath, DENIES: Cough, Wheezing Cardiovascular: DENIES: Chest pain, Palpitations, Syncope Gastrointestinal: DENIES: Abdominal pain, Black stools, Bloody stools Musculoskeletal: DENIES: Joint pain, Muscle aches, Stiffness Integumentary: DENIES: Abnormal pigmentation, Nail changes, Pruritus, Rash Immunologic/allergic: DENIES: Eczema, Urticaria Neurologic: DENIES: Abnormal gait, Headache, Paresthesias Psychiatric: DENIES: Anxiety, Confusion, Hallucinations Past Family Social History Past Medical History CHF CAD HTN HLD CKD Past Surgical History Cardiac catheterizations with stent placement 10 per patient Left lower extremity bypass Reported Medications Reported Meds & Active Scripts Active Hydralazine HCl 10 Mg Tablet 10 Mg PO Q8HR Torsemide 10 Mg Tab 10 Mg PO BID Carvedilol 6.25 Mg Tab 6.25 Mg PO BID Reported Vitamin B-12 (Cyanocobalamin) 1,000 Mcg Tab 1,000 Mcg PO DAILY Aspirin 325 Mg Tab 325 Mg PO ONCE Sodium Bicarbonate 650 Mg Tab 650 Mg PO DAILY Nitrostat SL (Nitroglycerin) 0.4 Mg Subl 0.4 Mg SL DIRECTED PRN 1 tablet under the tongue as needed for chest pain. Repeat every 5 minutes for a total of 3 DOSES or call 911 if NO relief. Calcitriol 0.25 Mcg Cap 0.25 Mcg PO EVERY OTHER DAY Doxazosin (Doxazosin Mesylate) 2 Mg Tab 2 Mg PO DAILY Norvasc (Amlodipine Besylate) 10 Mg Tab 10 Mg PO DAILY Omeprazole 20 Mg Tab 20 Mg PO DAILY Atorvastatin (Atorvastatin Calcium) 80 Mg Tab 80 Mg PO HS Allergies: Coded Allergies: Penicillins (Verified Allergy, Unknown, 11/16/17) Uncoded Allergies: pcn (Allergy, Severe, Anaphylaxis, 10/11/17) Family History Both parents with CAD and DM Social History Denies alcohol, tobacco and illicit drugs Physical Exam Vital Signs Vital Signs Date Time Temp Pulse Resp B/P (MAP) Pulse Ox O2 Delivery O2 Flow Rate FiO2 11/16/17 08:43 96 BiPAP 40 11/16/17 08:43 96 BiPAP 40 11/16/17 08:43 92 22 163/100 (121) 96 BiPAP 40 11/16/17 07:00 100 40 11/16/17 06:39 100 CPAP 11/16/17 06:39 97.7 11/16/17 06:32 104 20 182/108 (132) 11/16/17 06:30 100 60 Physical Exam GENERAL: NAD, A&Ox3 HEAD: Normocephalic. NECK: Supple, trachea midline. No lymphadenopathy. EYES: No scleral icterus. No injection or drainage. CARDIOVASCULAR: Regular rate and rhythm without murmurs, gallops, or rubs. RESPIRATORY: Breath sounds equal bilaterally. No accessory muscle use. Bilateral basilar crackles. GASTROINTESTINAL: Abdomen soft, non-tender, nondistended. MUSCULOSKELETAL: No cyanosis, or edema. SKIN: Warm and dry. NEURO: No focal neurological deficitis. Laboratory Laboratory Tests Test 11/16/17 06:47 11/16/17 06:51 Blood Gas Puncture Site RT RADIAL Blood Gas Patient Temperature 98.6 Blood Gas HCO3 19 Blood Gas Base Excess -4.7 Blood Gas Oxygen Saturation 96 Arterial Blood pH 7.40 Arterial Blood Partial Pressure CO2 32 Arterial Blood Partial Pressure O2 96 Arterial Blood Oxygen Content 14.4 Arterial Blood Carboxyhemoglobin 1.3 Arterial Blood Methemoglobin 0.7 Blood Gas Hemoglobin 10.6 Oxygen Delivery Device BiPAP Blood Gas Ventilator Setting IPAP 10 EPAP 5 Blood Gas Inspired Oxygen 60 White Blood Count 8.7 Red Blood Count 3.73 Hemoglobin 11.1 Hematocrit 33.6 Mean Corpuscular Volume 90.1 Mean Corpuscular Hemoglobin 29.7 Mean Corpuscular Hemoglobin Concent 33.0 Red Cell Distribution Width 14.8 Platelet Count 170 Mean Platelet Volume 9.6 Neutrophils (%) (Auto) 83.4 Lymphocytes (%) (Auto) 5.3 Monocytes (%) (Auto) 8.3 Eosinophils (%) (Auto) 2.1 Basophils (%) (Auto) 0.9 Neutrophils # (Auto) 7.3 Lymphocytes # (Auto) 0.5 Monocytes # (Auto) 0.7 Eosinophils # (Auto) 0.2 Basophils # (Auto) 0.1 CBC Comment DIFF FINAL Differential Comment Prothrombin Time 12.1 Prothromb Time International Ratio 1.2 Activated Partial Thromboplast Time 28.6 Blood Urea Nitrogen 54 Creatinine 3.45 Random Glucose 141 Total Protein 6.9 Albumin 3.3 Calcium Level 8.2 Magnesium Level 1.2 Alkaline Phosphatase 151 Aspartate Amino Transf (AST/SGOT) 19 Alanine Aminotransferase (ALT/SGPT) 65 Total Bilirubin 0.7 Sodium Level 146 Potassium Level 4.2 Chloride Level 113 Carbon Dioxide Level 20.7 Anion Gap 12 Estimat Glomerular Filtration Rate 18 Total Creatine Kinase 59 Troponin I 0.11 B-Type Natriuretic Peptide 1780 Result Diagram: 11/16/17 0651 11/16/17 0651 Imaging Last Impressions Chest X-Ray 11/16/17 0647 Signed Impressions: Service Date/Time: Thursday, November 16, 2017 07:10 - CONCLUSION: Abnormal interstitial opacities bilaterally, new from the prior study. The pattern and appearance is suggestive of interstitial pulmonary edema. Angus Angeles MD Caprini VTE Risk Assessment Caprini VTE Risk Assessment: No/Low Risk (score <= 1) Caprini Risk Assessment Model Point Value = 1 Point Value = 2 Point Value = 3 Point Value = 5 Age 41-60 Minor surgery BMI > 25 kg/m2 Swollen legs Varicose veins or History of unexplained or recurrent spontaneous Oral contraceptives or hormone replacement Sepsis (< 1 month) Serious lung disease, including pneumonia (< 1 month) Abnormal pulmonary function Acute myocardial infarction Congestive heart failure (< 1 month) History of inflammatory bowel disease Medical patient at bed rest Age 61-74 Arthroscopic surgery Major open surgery (> 45 min) Laparoscopic surgery (> 45 min) Malignancy Confined to bed (> 72 hours) Immobilizing plaster cast Central venous access Age >= 75 History of VTE Family history of VTE Factor V Leiden Prothrombin [id number] Lupus anticoagulant Anticardiolipin antibodies Elevated serum homocysteine Heparin-induced thrombocytopenia Other congenital or acquired thrombophilia Stroke (< 1 month) Elective arthroplasty Hip, pelvis, or leg fracture Acute spinal cord injury (< 1 month) Prophylaxis Regimen Total Risk Factor Score Risk Level Prophylaxis Regimen 0-1 Low Early ambulation 2 Moderate Order ONE of the following: *Sequential Compression Device (SCD) *Heparin 5000 units SQ BID 3-4 Higher Order ONE of the following medications: *Heparin 5000 units SQ TID *Enoxaparin/Lovenox 40 mg SQ daily (WT < 150 kg, CrCl > 30 mL/min) *Enoxaparin/Lovenox 30 mg SQ daily (WT < 150 kg, CrCl > 10-29 mL/min) *Enoxaparin/Lovenox 30 mg SQ BID (WT < 150 kg, CrCl > 30 mL/min) AND/OR *Sequential Compression Device (SCD) 5 or more Highest Order ONE of the following medications: *Heparin 5000 units SQ TID (Preferred with Epidurals) *Enoxaparin/Lovenox 40 mg SQ daily (WT < 150 kg, CrCl > 30 mL/min) *Enoxaparin/Lovenox 30 mg SQ daily (WT < 150 kg, CrCl > 10-29 mL/min) *Enoxaparin/Lovenox 30 mg SQ BID (WT < 150 kg, CrCl > 30 mL/min) AND *Sequential Compression Device (SCD) Assessment and Plan Problem List: (1) Pulmonary edema ICD Code: J81.1 - Chronic pulmonary edema (2) Respiratory failure ICD Code: J96.90 - Respiratory failure, unspecified, unspecified whether with hypoxia or hypercapnia (3) Chronic kidney disease ICD Code: N18.9 - Chronic kidney disease, unspecified Status: Acute (4) Shortness of breath ICD Code: R06.02 - Shortness of breath Status: Acute (5) Congestive heart failure ICD Code: I50.9 - Heart failure, unspecified Status: Acute (6) Systolic heart failure ICD Code: I50.20 - Unspecified systolic (congestive) heart failure Assessment and Plan 72-year-old male admitted secondary to CHF exacerbation related to missed doses of torsemide Acute on chronic systolic CHF exacerbation Pulmonary edema Acute respiratory failure IV Lasix twice daily to fluid balance achieved Monitor renal function while diuresing Monitor respiratory status Oxygen supplementation as needed Consider discharge when fluid balance is achieved and respiratory symptoms return to baseline CAD No chest pain Continue baseline treatments Follow clinically Hypertension Continue baseline treatment Follow blood pressures Adjust treatments as needed Hyperlipidemia Continue present treatment Follow as an outpatient CKD Diuresis as above Monitor renal function Avoid nephrotoxins DVT prophylaxis SCDs Problem Qualifiers (1) Chronic kidney disease: Qualified Codes: N18.4 - Chronic kidney disease, stage 4 (severe) (2) Congestive heart failure: Qualified Codes: I50.9 - Heart failure, unspecified Bryan Erickson MD Nov 16, 2017 09:31
[2017-11-16] MEDS: FUROSEMIDE 20 MG/2 ML VIAL IV PUSH SCH (13:09)
[2017-11-16] MEDS: hydrALAZINE HCL 10 MG TAB PO SCH ×2 (13:09→20:22)
[2017-11-16] MEDS ORDERED: ENALAPRILAT 1.25 MG/ML VIAL IV PUSH PRN (17:00)
[2017-11-16] MEDS ORDERED: cloNIDine HCL 0.1 MG TAB PO PRN (17:00)
[2017-11-16] MEDS: CARVEDILOL 6.25 MG TAB PO SCH (20:22)
[2017-11-16] MEDS: SODIUM CHLORIDE 0.9% FLUSH 10 ML FLUSH IV FLUSH SCH (20:28)
[2017-11-16] MEDS ORDERED: ATORVASTATIN 80 MG TAB PO SCH (21:00)
--- NOTE | 2017-11-17 00:04 | EKG ---
Date Performed: 11/16/2017 Time Performed: 06:36:26 PTAGE: 72 years EKG: SINUS TACHYCARDIA LOW QRS VOLTAGE IN EXTREMITY LEADS MODERATE INTRAVENTRICULAR CONDUCTION D ELAY NONSPECIFIC ST & T-WAVE ABNORMALITY ABNORMAL ECG PREVIOUS TRACING : 10/11/2017 22.52 Since the previous tracing, no significant change noted DOCTOR: Ricky Knott Interpretating Date/Time 11/17/2017 00:03:24
[2017-11-17 04:26] VITALS: BP 127/75; PULSE 79; RESP 17; TEMP 98.7; O2SAT 95
[2017-11-17] MEDS: hydrALAZINE HCL 10 MG TAB PO SCH (06:00)
[2017-11-17 06:36] LABS: AUTOMATED NEUTROPHIL # 4.5 TH/MM3 (1.8-7.7); BASOPHIL # 0.1 TH/MM3 (0-0.2); BASOPHIL % 0.9 % (0.0-2.0); EOSINOPHIL # 0.2 TH/MM3 (0-0.4); EOSINOPHIL % 2.5 % (0.0-4.0); HEMATOCRIT 29.5 % (39.0-51.0); HEMOGLOBIN 9.7 GM/DL (13.0-17.0); MEAN CELL VOLUME 89.8 FL (80.0-100.0); MEAN CORPUSCULAR HEMOGLOBIN 29.6 PG (27.0-34.0); MEAN CORPUSCULAR HGB CONC 32.9 % (32.0-36.0); MEAN PLATELET VOLUME 9.7 FL (7.0-11.0); MONO % 11.8 % (0.0-8.0); MONOCYTE # 0.8 TH/MM3 (0-0.9); NEUT % 68.8 % (16.0-70.0); PLATELET COUNT 152 TH/MM3 (150-450); RED BLOOD COUNT 3.28 MIL/MM3 (4.50-5.90); RED CELL DISTRIBUTION WIDTH 14.9 % (11.6-17.2); WHITE BLOOD COUNT 6.5 TH/MM3 (4.0-11.0)
[2017-11-17 06:46] LABS: ALBUMIN 2.7 GM/DL (3.4-5.0); AST (GOT) 10 U/L (15-37); BICARBONATE 22.3 MEQ/L (21.0-32.0); BLOOD UREA NITROGEN 58 MG/DL (7-18); CHLORIDE 110 MEQ/L (98-107); CREATININE 3.53 MG/DL (0.60-1.30); GLOMERULAR FILTRATION RATE 17 ML/MIN (>89); GLUCOSE,RANDOM 94 MG/DL (74-106); SODIUM (NA) 142 MEQ/L (136-145)
[2017-11-17 06:49] LABS: ALKALINE PHOSPHATASE 118 U/L (45-117); ALT (GPT) 39 U/L (12-78); TOTAL BILIRUBIN ADULT 0.7 MG/DL (0.2-1.0)
[2017-11-17 07:21] VITALS: BP 146/83; PULSE 80; RESP 20; TEMP 97.6; O2SAT 92
[2017-11-17] MEDS: CARVEDILOL 6.25 MG TAB PO SCH (08:36)
[2017-11-17] MEDS: FUROSEMIDE 20 MG/2 ML VIAL IV PUSH SCH (08:36)
[2017-11-17] MEDS: SODIUM CHLORIDE 0.9% FLUSH 10 ML FLUSH IV FLUSH SCH (08:37)
[2017-11-17] MEDS ORDERED: SODIUM BICARBONATE 650 MG TAB PO SCH (09:00)
[2017-11-17] MEDS ORDERED: DOXAZOSIN MESYLATE 2 MG TAB PO SCH (09:00)
[2017-11-17] MEDS ORDERED: CYANOCOBALAMIN 1,000 MCG TAB PO SCH (09:00)
[2017-11-17] MEDS ORDERED: PANTOPRAZOLE SOD 20 MG DELAYED RELEASE TAB PO SCH (09:00)
[2017-11-17 11:53] VITALS: BP 137/74; PULSE 79; RESP 20; TEMP 97.8; O2SAT 96
--- NOTE | 2017-11-17 12:53 | HHI.PR ---
Subjective Remarks The patient wants to go home. He says staying in the hospital is costing too much money. He says that he is very active. If he requires home oxygen he does not want it. He says he is in the hospital because he was unable to get his torsemide refilled. Discussed with nursing. Objective Vitals Vital Signs Date Time Temp Pulse Resp B/P (MAP) Pulse Ox O2 Delivery O2 Flow Rate FiO2 11/17/17 11:53 97.8 79 20 137/74 (95) 96 11/17/17 07:21 97.6 80 20 146/83 (104) 92 11/17/17 04:26 98.7 79 17 127/75 (92) 95 11/16/17 23:49 98.2 83 16 114/67 (83) 95 11/16/17 20:20 98.5 91 17 127/70 (89) 95 11/16/17 20:15 96 3.00 11/16/17 17:24 100 11/16/17 16:11 98.0 97 16 170/86 (114) 96 I/O 11/16/17 11/16/17 11/16/17 11/17/17 11/17/17 11/17/17 07:00 15:00 23:00 07:00 15:00 23:00 Intake Total 200 ml 200 ml Balance 200 ml 200 ml Intake Oral 200 ml 200 ml Result Diagram: 11/17/17 0541 11/17/17 0541 Imaging Last Impressions Chest X-Ray 11/16/17 0647 Signed Impressions: Service Date/Time: Thursday, November 16, 2017 07:10 - CONCLUSION: Abnormal interstitial opacities bilaterally, new from the prior study. The pattern and appearance is suggestive of interstitial pulmonary edema. Angus Angeles MD Objective Remarks GENERAL: NAD. HEAD: Normocephalic. NECK: Supple, trachea midline. No lymphadenopathy. EYES: No scleral icterus. No injection or drainage. CARDIOVASCULAR: Regular rate and rhythm without murmurs, gallops, or rubs. RESPIRATORY: Breath sounds equal bilaterally. No accessory muscle use. No crackles. GASTROINTESTINAL: Abdomen soft, non-tender, nondistended. MUSCULOSKELETAL: No cyanosis, or edema. SKIN: Warm and dry. NEURO: No focal neurological deficits. PSYCH: Slightly irritable. Medications and IVs Current Medications Medications (Trade) Dose Ordered Sig/Lamar Route Start Time Stop Time Status Last Admin (NS Flush) 2 ml UNSCH PRN IV FLUSH 11/16/17 09:30 (NS Flush) 2 ml BID IV FLUSH 11/16/17 21:00 11/17/17 08:37 (Zofran Inj) 4 mg Q6H PRN IVP 11/16/17 09:30 (Narcan Inj) 0.4 mg UNSCH PRN IV PUSH 11/16/17 09:30 (Milk Of Magnesia Liq) 30 ml Q12H PRN PO 11/16/17 09:30 (Norvasc) 10 mg DAILY PO 11/17/17 09:00 11/17/17 08:36 (Lipitor) 80 mg HS PO 11/16/17 21:00 11/16/17 20:22 (Rocaltrol) 0.25 mcg EVERY OTHER DAY PO 11/18/17 09:00 (Coreg) 6.25 mg BID PO 11/16/17 21:00 11/17/17 08:36 (Vitamin B12) 1,000 mcg DAILY PO 11/17/17 09:00 11/17/17 08:36 (Cardura) 2 mg DAILY PO 11/17/17 09:00 11/17/17 08:36 (Apresoline) 10 mg Q8HR PO 11/16/17 14:00 11/16/17 20:22 (Sodium Bicarbonate) 650 mg DAILY PO 11/17/17 09:00 11/17/17 08:36 (Protonix) 20 mg DAILY PO 11/17/17 09:00 11/17/17 08:36 (Nitrostat Sl) 0.4 mg Q5M PRN SL 11/16/17 09:30 (Lasix Inj) 20 mg BID@0800,1400 IV PUSH 11/16/17 14:00 11/17/17 08:36 (Catapres) 0.1 mg Q6H PRN PO 11/16/17 17:00 11/16/17 17:19 (Vasotec Inj) 1.25 mg Q6H PRN IV PUSH 11/16/17 17:00 A/P Problem List: (1) Pulmonary edema ICD Code: J81.1 - Chronic pulmonary edema (2) Respiratory failure ICD Code: J96.90 - Respiratory failure, unspecified, unspecified whether with hypoxia or hypercapnia (3) Chronic kidney disease ICD Code: N18.9 - Chronic kidney disease, unspecified Status: Acute (4) Shortness of breath ICD Code: R06.02 - Shortness of breath Status: Acute (5) Congestive heart failure ICD Code: I50.9 - Heart failure, unspecified Status: Acute (6) Systolic heart failure ICD Code: I50.20 - Unspecified systolic (congestive) heart failure Assessment and Plan Acute on chronic systolic CHF exacerbation/ Pulmonary edema/ Acute respiratory failure Seems to be improving. - IV Lasix twice daily to fluid balance achieved. Will resume torsemide upon discharge. - Oxygen supplementation as needed. Walk test ordered. The pt will not need home oxygen. - outpt follow-up with cardiology. CAD No chest pain - Continue baseline treatments. Hypertension Well controlled at this time. - Continue baseline treatments. CKD Stage IV. - Diuresis as above. - Monitor renal function, avoid nephrotoxins. - outpt follow-up with nephrology. DVT prophylaxis: SCDs Discharge Planning D/c home Problem Qualifiers (1) Chronic kidney disease: Qualified Codes: N18.4 - Chronic kidney disease, stage 4 (severe) (2) Congestive heart failure: Qualified Codes: I50.9 - Heart failure, unspecified Elías Velasco DO Nov 17, 2017 12:53
[2017-11-17] MEDS ORDERED: HYDR-3798 PO (12:57)
[2017-11-17] MEDS ORDERED: CARV6.252 PO (12:57)
[2017-11-17] MEDS ORDERED: DOXA1TAB35 PO (12:57)
[2017-11-17] MEDS ORDERED: ATOR80TA45 PO (12:57)
[2017-11-17] MEDS ORDERED: TORS10TA2 PO (12:57)
[2017-11-17] MEDS ORDERED: AMLO10 PO (12:57)
--- NOTE | 2017-11-17 13:00 | HHI.DCPOC ---
Discharge Care Plan Diagnosis: (1) Congestive heart failure (2) Shortness of breath (3) Chronic kidney disease (4) Pulmonary edema (5) Respiratory failure Goals to Promote Your Health * To prevent worsening of your condition and complications * To maintain your health at the optimal level Directions to Meet Your Goals Take your medications as prescribed Follow your dietary instruction Follow activity as directed Keep your appointments as scheduled Take your immunizations and boosters as scheduled If your symptoms worsen call your PCP, if no PCP go to Urgent Care Center or Emergency Room Smoking is Dangerous to Your Health. Avoid second hand smoke Call the 24-hour hour crisis hotline for domestic abuse at Elías Velasco DO Nov 17, 2017 13:00
[2017-11-18] MEDS ORDERED: CALCITRIOL 0.25 MCG CAP PO SCH (09:00)
== END 2017-11-17 13:57 | disposition home or self-care (01) ==
LOC: NEPC 06:29 → NEDA 09:21 → NEPGCP 11:35
PROVIDERS: ADMIT Hospitalist; ATTEND Hospitalist
DX: I50.23 Acute on chronic systolic (congestive) heart failure (principal); I13.0 Hypertensive heart and chronic kidney disease with heart failure and stage 1 through stage 4 chronic kidney disease, or unspecified chronic kidney disease; N18.4 Chronic kidney disease, stage 4 (severe); I25.10 Atherosclerotic heart disease of native coronary artery without angina pectoris; I73.9 Peripheral vascular disease, unspecified; J96.00 Acute respiratory failure, unspecified whether with hypoxia or hypercapnia; E78.5 Hyperlipidemia, unspecified; Z72.0 Tobacco use; Z79.82 Long term (current) use of aspirin; Z82.49 Family history of ischemic heart disease and other diseases of the circulatory system; Z83.3 Family history of diabetes mellitus
CPT/HCPCS: 36600; 71045; 80053; 82550; 82805; 83735; 83880; 84484; 85025; 85610; 85730; 93005; 94618; 96374; 96376; 99285; G0378; J1940; 94002